=== PATIENT | male | born 1935 | race African-American/Black ===

== ENCOUNTER 2024-01-25 12:51 | Inpatient (IN) | payer MEDICARE, BC ==
[2024-01-26 12:04] LABS: Glucose,Whole Blood 177 mg/dL (70-110)
[2024-01-26] MEDS ORDERED: DEXTROSE 50% SYRINGE 50 ML IVP PRN ×2 (12:40)
[2024-01-26] MEDS: PIPERACILLIN-TAZOBACTAM 3.375 GM in SODIUM CHLORIDE 0.9% 100 ML IVPB SCH (16:53)
[2024-01-26] MEDS: carvediloL 12.5 MG TAB PO SCH (16:54)
[2024-01-26 17:06] LABS: Glucose,Whole Blood 174 mg/dL (70-110)
[2024-01-26] MEDS: INSULIN ASPART (NovoLOG) 100 UNIT/ML VIAL SQ SCH (17:09)
--- NOTE | 2024-01-26 17:44 | P.GSCN ---
History of Present Illness Consult date: 01/26/24 Reason for Consult: Recurrent right-sided pleural effusion, status post right thoracentesis Requesting physician: Bean E Sheet History of present illness: This is an 88-year-old gentleman who follows on an outpatient basis with Dr. Ayala for his primary care service, he also follows with Dr. Marlen Cuba for his pulmonary care management. He has a past medical history significant for hypertension, hyperlipidemia, COPD wears 2 L of oxygen at home, diabetes mellitus type 2, coronary artery disease status post three-vessel coronary artery bypass grafting surgery related to 95, history of myocardial infarction, arthritis, learning disability, prostate disease, gout, and a remote history of nicotine dependence in which he quit 40 years ago. He presented to the emergency department at [facility] via EMS on Tuesday, January 23, 2024 with complaints of shortness of breath, numbness to his bilateral lower extremities constipation and cold sweats. According to the patient's family members present at his bedside he recently had a right pleural effusion and underwent a right sided thoracentesis, or possible chest tube placement on January 01 or January 06, 2024. One of the patient's grandson states the cytology was positive for lung cancer. According to the patient's chart from [facility] the cytology was positive for metastatic carcinoma, differential including neuroendocrine carcinoma versus adenocarcinoma with neuroendocrine features. On 01/23/24 a Chest X-ray was completed which showed multifocal airspace disease due to right upper and lower lung lozano could represent pneumonia. A chest CT scan was was completed demonstrated a mass in the right upper lobe measured 10 x 4 cm, adjacent opacity with suspicion for infection and malignancy, involving a right lower lobe bronchus opacity left upper lobe, large right pleural effusion, no evidence of an acute upper lobe PE, no evidence of pneumothorax. The patient is receiving Zosyn for antibiotic therapy. The patient's laboratory results from [facility] show a WBC count of 13.7, hemoglobin 11.7, platelets 211, creatinine 1.04, and a lactic acid of 3.6. Currently the patient is on 2 L nasal cannula with oxygen saturations 92%. Subsequently, due to the patient's findings of right pleural effusion the patient was transferred to [facility] for further evaluation and treatment recommendations by cardiothoracic surgery. Review of Systems A review of systems was completed and was negative except as mentioned in the HPI. Past Medical History Past Medical History: Coronary Artery Disease (CAD) (History of three-vessel coronary artery bypass grafting surgery in 1994), Cancer, COPD (Uses 2 L oxygen at home), Diabetes Mellitus, Hyperlipidemia, Hypertension, Myocardial Infarction ([place]), Osteoarthritis (OA), Prostate Disorder Additional Past Medical History / Comment(s): lung cancer, gout Last Myocardial Infarction Date:: 1999 History of Any Multi-Drug Resistant Organisms: None Reported Past Surgical History: Coronary Bypass/CABG, Hernia Repair Additional Past Surgical History / Comment(s): triple bypass 1999, chest tube 01/06/2024, gallbladder surgery Past Anesthesia/Blood Transfusion Reactions: No Reported Reaction Past Psychological History: No Psychological Hx Reported Smoking Status: Former smoker Past Alcohol Use History: None Reported Past Drug Use History: None Reported - Past Family History Mother Family Medical History: Diabetes Mellitus Father Family Medical History: Myocardial Infarction ([place]) Medications and Allergies Home Medications Medication Instructions Recorded Confirmed Type Albuterol Sulfate [Albuterol 2 puff INHALATION RT-Q6H PRN 01/26/24 01/26/24 History Sulfate Hfa] Albuterol Sulfate [Ventolin HFA] 2 puff INHALATION RT-QID PRN 01/26/24 01/26/24 History Fluticasone Propion/Salmeterol 2 puff INHALATION RT-BID 01/26/24 01/26/24 History [Advair Hfa 230-21 Mcg Inhaler] Furosemide [Lasix] 20 mg PO MOWEFR 01/26/24 01/26/24 History Glimepiride [Amaryl] 4 mg PO AC-BRKFST 01/26/24 01/26/24 History Simvastatin [Zocor] 10 mg PO HS 01/26/24 01/26/24 History amLODIPine [Norvasc] 10 mg PO DAILY 01/26/24 01/26/24 History carvediloL [Coreg] 12.5 mg PO BID-W/MEALS 01/26/24 01/26/24 History metFORMIN HCL [Glucophage] 500 mg PO BID-W/MEALS 01/26/24 01/26/24 History predniSONE 5 mg PO DAILY 01/26/24 01/26/24 History Allergies Allergy/AdvReac Type Severity Reaction Status Date / Time No Known Allergies Allergy Unverified 01/26/24 13:03 Surgical - Exam Vital Signs Temp Pulse Resp BP Pulse Ox 98.0 F 83 22 122/51 92 L 01/26/24 10:36 01/26/24 10:36 01/26/24 10:36 01/26/24 10:36 01/26/24 10:36 - General This is an 88-year-old gentleman laying in bed on the fifth floor medical oncology unit, complaining of some pain to his right chest underneath his baljit ulder blade with taking deep breath, cooperative and is in no acute apparent distress. well developed, well nourished, no distress, chronically ill - Eyes PERRL, normal ocular movement, no pale, no icteric - ENT normal pinna, normal nares, normal mucosa, decreased hearing, dentures - Neck No lymphadenopathy. no masses, no bruits, trachea midline, no venous distension - Respiratory Lung sounds with scattered expiratory wheezes throughout, diminished to his bilateral bases right greater than left. No rhonchi or crackles. Respirations are symmetrical and nonlabored. Oxygen saturation is 92% on 2 L nasal cannula. - Cardiovascular Regular rhythm and rate. S1 and S2 present, negative for S3, gallop or murmur. No edema - Abdomen Abdomen is soft, nontender and slightly distended. No guarding or rigidity. No organomegaly appreciated. - Genitourinary Deferred - Rectum Deferred - Integumentary Skin is warm and dry. No clubbing or cyanosis is present. no rash, no growths, no abnormal pigmentation - Neurologic No focal deficits. - Psychiatric oriented to time, oriented to person, oriented to place, speech is normal, memory intact Results - Labs Abnormal Lab Results - Last 24 Hours (Table) 01/26/24 Range/Units 12:03 POC Glucose (mg/dL) 177 H (70-110) mg/dL Assessment and Plan Assessment: Recurrent right pleural effusion, noted from his chart from [facility] Recent diagnosis of lung cancer per pleural fluid cytology noted in his chart from [facility] Hypertension Hyperlipidemia Diabetes mellitus type 2 COPD with home oxygen use 2 L nasal cannula History of myocardial infarction in 1994 Coronary artery disease with history of three-vessel coronary artery bypass grafting surgery in 1994 Remote history of nicotine dependence quit smoking 40 years ago Plan: The patient was seen and examined at his bedside on the fourth floor medical oncology unit. His chart and diagnostics were reviewed from his chart from [facility]. His case was discussed with Dr. Jesus Lo from cardiothoracic surgery. We will obtain a stat chest x-ray to evaluate the right pleural effusion. Continue to monitor daily chest x-rays. We will order an incentive spirometry and encourage use 10 times every hour while awake. The patient is known to Dr. Cuba, we will consult Dr. Cuba from pulmonary [facility]. Medical management and other comorbidities per primary care service. More recommendations to follow based on patient's clinical course and as his chest x-ray results have been obtained. Thank you for this consult and we look forward to working with you in the care of this patient. I have personally seen and examined the patient, performed the documentation and the assessment and plan as written. Number of minutes spent on the visit: 30. Gary Cardenas, RYAN-C
--- NOTE | 2024-01-26 18:24 | XR ---
EXAMINATION TYPE: XR chest 1V portable DATE OF EXAM: 01/26/2024 COMPARISON: CT chest 01/23/2024 INDICATION: Right pleural effusion TECHNIQUE: Single frontal view of the chest is obtained. FINDINGS: The heart size is normal. The pulmonary vasculature is normal. Consolidation is in the right upper lobe. Scattered infiltrates in the right lower lobe. Small right pleural effusion is present. No pneumothorax is evident. Sternotomy wires are in the midline IMPRESSION: 1. Small right pleural effusion. 2. Mass versus consolidation right upper lobe. Follow-up to clearing. Neoplasm should be considered
[2024-01-26] MEDS: BUDESONIDE 0.5 MG/2 ML NEBU INHALATION SCH (18:55)
[2024-01-26] MEDS: IPRATROPIUM-ALBUTEROL 3 ML NEB INHALATION PRN (18:55)
[2024-01-26 19:27] LABS: Glucose,Whole Blood 147 mg/dL (70-110)
[2024-01-26] MEDS: ALPRAZolam 0.5 MG TAB PO PRN (19:38)
[2024-01-26] MEDS: FAMOTIDINE 20 MG TAB PO SCH (21:10)
[2024-01-26] MEDS: ATORVASTATIN 40 MG TAB PO SCH (21:10)
[2024-01-26] MEDS: HEPARIN SODIUM,PORCINE 5,000 UNIT/ML 1 ML VIAL SQ SCH (21:12)
[2024-01-26] MEDS: bisacodyL 10 MG SUPP RECTAL STA (22:05)
[2024-01-27] MEDS: HYDROcodone/APAP 5-325MG 1 EACH TAB PO PRN (04:25)
[2024-01-27] MEDS: guaiFENesin-DM 100-10MG/5ML 10 ML CUP PO PRN (04:54)
--- NOTE | 2024-01-27 05:04 | P.CNPUL ---
History of Present Illness Consult date: 01/27/24 Requesting physician: Edi Cardenas Reason for consult: pleural effusion Chief complaint: transfer from [facility] History of present illness: Patient is an 88-year-old -Maldivian male with past medical history significant for former tobacco dependence, severe COPD, chronic oxygen dependence, occupational lung disease, recurrent pleural effusion status post thoracentesis. Patient reportedly recently treated for pneumonia, had a right- sided thoracentesis done at [facility], earlier in December,. Cytology reportedly positive for carcinoma, differential including neuroendocrine versus adenocarcinoma with neuroendocrine features. Has followed up in the pulmonary office with Dr. Vivar on January 10. No plans for bronchoscopy and transbronchial biopsy, as the patient's pulmonary status is marginal at best. He has a oncology appointment scheduled on 02/07/2024. He returned to the outside facility on 01/23/24, with a chief complaint of ongoing worsening shortness of breath. Also, right-sided chest pain and night sweats. A chest CT scan was was completed demonstrated a mass in the right upper lobe measured 10 x 4 cm, adjacent opacity with suspicion for infection and malignancy, recurrent large right pleural effusion, no evidence of pneumothorax. Patient was transferred to our facility yesterday for possible Pleurx catheter placement. Cardiothoracic team has already evaluated the patient. Patient also has medical history significant for hypertension, hyperlipidemia, coronary artery disease with previous CABG, type 2 diabetes mellitus, among other things. Patient is currently on the medical floor. His grandson is at bedside. He is on 3 L/min nasal cannula. SpO2 is 96%. He states that he is still short of breath. Tachypneic. Pursed lip breathing. Also, complaining of some right sided thoracic level back pain. Separate concern is his constipation, although he did have a small bowel movement last night. No nausea or vomiting. No abdominal pain. CBC from outside facility: WBC count 13.7, hemoglobin 11.7, hematocrit 35.5, platelets 211. BMP from outside facility: Sodium 136, potassium 4.9, chloride 97, serum bicarb 30, BUN 23, creatinine 1.04, glucose 172. LFTs unremarkable. Covered empirically on Zosyn. Has been afebrile. Review of Systems Constitutional: Reports fatigue, Reports poor appetite, Reports weight loss, Denies chills, Denies fever Ears, nose, mouth and throat: Denies headache, Denies nasal discharge, Denies post-nasal drip, Denies sinus pressure, Denies sore throat Cardiovascular: Reports dyspnea on exertion, Denies leg edema, Denies lightheadedness, Denies orthopnea, Denies paroxysmal nocturnal dyspnea, Denies syncope Respiratory: Reports dyspnea, Reports home oxygen, Reports pain on inspiration, Reports wheezing, Denies cough with sputum, Denies hemoptysis Gastrointestinal: Reports constipation, Denies abdominal pain, Denies diarrhea, Denies nausea, Denies vomiting Genitourinary: Denies dysuria, Denies hematuria, Denies urinary frequency Musculoskeletal: Denies arm numbness/tingling, Denies leg numbness/tingling, Denies limitation of motion Integumentary: Denies rash Neurological: Denies balance difficulties, Denies change in mentation, Denies gait dysfunction, Denies headaches, Denies memory loss, Denies seizures, Denies syncope, Denies tremors, Denies visual changes Psychiatric: Denies anxiety, Denies depression Past Medical History Past Medical History: Coronary Artery Disease (CAD) (History of three-vessel coronary artery bypass grafting surgery in 1994), Cancer, COPD (Uses 2 L oxygen at home), Diabetes Mellitus, Hyperlipidemia, Hypertension, Myocardial Infarction ([place]), Osteoarthritis (OA), Prostate Disorder Additional Past Medical History / Comment(s): lung cancer, gout Last Myocardial Infarction Date:: 1999 History of Any Multi-Drug Resistant Organisms: None Reported Past Surgical History: Coronary Bypass/CABG, Hernia Repair Additional Past Surgical History / Comment(s): triple bypass 1999, chest tube 01/06/2024, gallbladder surgery Past Anesthesia/Blood Transfusion Reactions: No Reported Reaction Past Psychological History: No Psychological Hx Reported Smoking Status: Former smoker Past Alcohol Use History: None Reported Past Drug Use History: None Reported - Past Family History Mother Family Medical History: Diabetes Mellitus Father Family Medical History: Myocardial Infarction ([place]) Medications and Allergies Home Medications Medication Instructions Recorded Confirmed Type Albuterol Sulfate [Albuterol 2 puff INHALATION RT-Q6H PRN 01/26/24 01/26/24 History Sulfate Hfa] Albuterol Sulfate [Ventolin HFA] 2 puff INHALATION RT-QID PRN 01/26/24 01/26/24 History Fluticasone Propion/Salmeterol 2 puff INHALATION RT-BID 01/26/24 01/26/24 History [Advair Hfa 230-21 Mcg Inhaler] Furosemide [Lasix] 20 mg PO MOWEFR 01/26/24 01/26/24 History Glimepiride [Amaryl] 4 mg PO AC-BRKFST 01/26/24 01/26/24 History Simvastatin [Zocor] 10 mg PO HS 01/26/24 01/26/24 History amLODIPine [Norvasc] 10 mg PO DAILY 01/26/24 01/26/24 History carvediloL [Coreg] 12.5 mg PO BID-W/MEALS 01/26/24 01/26/24 History metFORMIN HCL [Glucophage] 500 mg PO BID-W/MEALS 01/26/24 01/26/24 History predniSONE 5 mg PO DAILY 01/26/24 01/26/24 History Allergies Allergy/AdvReac Type Severity Reaction Status Date / Time No Known Allergies Allergy Unverified 01/26/24 13:03 Physical Exam Vitals: Vital Signs Temp Pulse Pulse Resp BP BP Pulse Ox 01/27/24 01:04 96 01/27/24 01:01 26 H 01/27/24 00:45 98.0 F 87 40 H 150/88 94 L 01/26/24 20:00 98.0 F 82 32 H 138/69 96 01/26/24 19:06 76 01/26/24 18:50 72 01/26/24 12:54 97.9 F 84 23 127/80 92 L 01/26/24 10:36 98.0 F 83 22 122/51 92 L Intake and Output 01/26/24 01/26/24 01/27/24 14:59 22:59 06:59 Intake Total 0 Output Total 125 400 Balance -125 0 -400 Intake: Oral 0 Output: Urine 125 400 Straight 400 Other: Voiding Method Bedpan Urinal # Voids 1 # Bowel Movements 1 Weight 74.4 kg GENERAL EXAM: Alert, 88-year-old -Maldivian male, lying in bed, tachypneic and pursed lip breathing. On HEAD: Normocephalic and atraumatic EYES: Normal reaction of pupils, equal size. NOSE: Clear with pink turbinates. THROAT: No erythema or exudates. NECK: No masses, no JVD. CHEST: No chest wall deformity. LUNGS: Equal air entry with diminished right basilar lung sounds. Scattered expiratory wheezing throughout. 3 L/min nasal cannula. In some mild respir atory distress, pursed lip breathing, tachypneic breathing in the 20s. CVS: S1 and S2 normal with no audible murmur, regular rhythm. No extra heart sounds ABDOMEN: No hepatosplenomegaly, active bowel sounds, no guarding or rigidity. SPINE: No scoliosis or deformity SKIN: No rashes CENTRAL NERVOUS SYSTEM: No focal deficits, tone is normal in all 4 extremities. EXTREMITIES: There is no peripheral edema, clubbing, or cyanosis. Peripheral pulses are intact. Results - Laboratory Findings Abnormal lab findings: Abnormal Labs 01/26/24 01/26/24 01/26/24 12:03 17:05 19:26 POC Glucose (mg/dL) 177 H 174 H 147 H - Diagnostic Findings Chest x-ray: image reviewed Assessment and Plan Assessment: Recurrent right-sided pleural effusion, reportedly malignant, per fluid cytology derived from [facility]. Cytology reportedly positive for carcinoma, differential including neuroendocrine versus adenocarcinoma with neuroendocrine features. Right upper lobe mass, A chest CT scan was was completed at outside facility demonstrated a mass in the right upper lobe measured 10 x 4 cm, adjacent opacity with suspicion for infection and malignancy, recurrent large right pleural effusion, no evidence of pneumothorax. Previously, not considered for br onchoscopy and transbronchial biopsy due to patient's poor baseline pulmonary status. Acute COPD exacerbation Acute on chronic hypoxemic respiratory failure, secondary to above Severe chronic obstructive pulmonary disease Chronic oxygen dependence, with 2 L home O2 use History of occupational lung disease History of hypertension History of hyperlipidemia Diabetes mellitus type 2 Coronary artery disease with history of CABG Former tobacco dependence, quitting over 40 years ago Plan: Patient found to have a recurrent malignant pleural effusion at outside facility, transferred for possible Pleurx catheter insertion. This is likely a reasonable intervention, as the fluid has reaccumulated rather quickly. I will discuss the case with Dr. Cuba. Cardiothoracic service has already been asked to see this patient. Continue supplemental oxygen to maintain oxygen saturation of 92% or greater Start patient on combination of DuoNebs, Symbicort inhaler, and IV Solu-Medrol Patient continues on empiric Zosyn. Scheduled for initial outpatient appointment with oncology later this month Will need outpatient PET scan Further recommendations are forthcoming. I have personally seen and examined the patient, performed the documentation and the assessment and plan as written. Number of minutes spent on the visit:20 Time with Patient: Greater than 30
--- NOTE | 2024-01-27 06:06 | P.HPIM ---
History of Present Illness This is a pleasant 88 years old -[place] male with past medical history of multiple medical problems including lung cancer. Other medical problems include COPD, Diabetes Mellitus, Hypertension, Myocardial Infarction ([place]), Osteoarthritis (OA), Prostate Disorder Patient was admitted initially to the ER [facility] for shortness of breath. Patient was found to have pneumonia and acute COPD exacerbation. He was treated on broad-spectrum antibiotics and IV Solu-Medrol. Also he is on 2 to 3 L oxygen via nasal cannula with acceptable oxygen saturation. Patient was concern for recurrent malignant pleural effusion therefore he was transferred to this facility to be evaluated for possible Pleurx catheter placement. Patient currently lying in bed looks comfortable multiple family members present at bedside. He is mildly tachypneic but denies chest pain. No significant cough and No other symptoms. No weakness numbness dizziness. Patient also complains from constipation for about 1 week with mild abdominal distention but abdomen soft with no significant tenderness Currently denies smoking alcohol or illicit drugs At baseline 2 L currently he is on 3 L oxygen No labs in this facility is. Check blood work in the morning Review of Systems Review of systems CONSTITUTIONAL: No fever, no malaise, no fatigue. HEENT: No recent visual problems or hearing problems. Denied any sore throat. CARDIOVASCULAR: No orthopnea, PND, no palpitations, no syncope. PULMONARY: No chest wall tenderness, no hemoptysis. GASTROINTESTINAL: No diarrhea, no nausea, no vomiting, no abdominal pain. Normoactive bowel sounds. NEUROLOGICAL: No headaches, no weakness, no numbness. HEMATOLOGICAL: Denies any bleeding or petechiae. GENITOURINARY: Denies any burning micturition, frequency, or urgency. MUSCULOSKELETAL/RHEUMATOLOGICAL: Denies any joint pain, swelling, or any muscle pain. ENDOCRINE: Denies any polyuria or polydipsia. Past Medical History Past Medical History: Cancer, COPD, Diabetes Mellitus, Hypertension, Myocardial Infarction ([place]), Osteoarthritis ([place]), Prostate Disorder Additional Past Medical History / Comment(s): lung cancer, gout Last Myocardial Infarction Date:: 1999 History of Any Multi-Drug Resistant Organisms: None Reported Past Surgical History: Coronary Bypass/CABG, Hernia Repair Additional Past Surgical History / Comment(s): triple bypass 1999, chest tube 01/06/2024, gallbladder surgery Past Anesthesia/Blood Transfusion Reactions: No Reported Reaction Past Psychological History: No Psychological Hx Reported Smoking Status: Former smoker Past Alcohol Use History: None Reported Past Drug Use History: None Reported - Past Family History Mother Family Medical History: Diabetes Mellitus Father Family Medical History: Myocardial Infarction ([place]) Medications and Allergies Home Medications Medication Instructions Recorded Confirmed Type Albuterol Sulfate [Albuterol 2 puff INHALATION RT-Q6H PRN 01/26/24 01/26/24 History Sulfate Hfa] Albuterol Sulfate [Ventolin HFA] 2 puff INHALATION RT-QID PRN 01/26/24 01/26/24 History Fluticasone Propion/Salmeterol 2 puff INHALATION RT-BID 01/26/24 01/26/24 History [Advair Hfa 230-21 Mcg Inhaler] Furosemide [Lasix] 20 mg PO MOWEFR 01/26/24 01/26/24 History Glimepiride [Amaryl] 4 mg PO AC-BRKFST 01/26/24 01/26/24 History Simvastatin [Zocor] 10 mg PO HS 01/26/24 01/26/24 History amLODIPine [Norvasc] 10 mg PO DAILY 01/26/24 01/26/24 History carvediloL [Coreg] 12.5 mg PO BID-W/MEALS 01/26/24 01/26/24 History metFORMIN HCL [Glucophage] 500 mg PO BID-W/MEALS 01/26/24 01/26/24 History predniSONE 5 mg PO DAILY 01/26/24 01/26/24 History Allergies Allergy/AdvReac Type Severity Reaction Status Date / Time No Known Allergies Allergy Unverified 01/26/24 13:03 Physical Exam Vitals: Vital Signs Temp Pulse Resp BP Pulse Ox 01/26/24 10:36 98.0 F 83 22 122/51 92 L Intake and Output 01/25/24 01/26/24 01/26/24 22:59 06:59 14:59 Output Total 125 Balance -125 Output: Urine 125 Other: # Voids 1 GENERAL: The patient is alert and oriented x3, not in any acute distress. Well developed, well nourished. HEENT: Pupils are round and equally reacting to light. EOMI. No scleral icterus. No conjunctival pallor. Normocephalic, atraumatic. No pharyngeal erythema. No thyromegaly. CARDIOVASCULAR: S1 and S2 present. No murmurs, rubs, or gallops. -PULMONARY: Decreased breath sounds on lung bases, bilateral scattered wheezing , no crackles. ABDOMEN: Soft, nontender, nondistended, normoactive bowel sounds. No palpable organomegaly. MUSCULOSKELETAL: No joint swelling or deformity. EXTREMITIES: No cyanosis, clubbing, or pedal edema. NEUROLOGICAL: Gross neurological examination did not reveal any focal deficits. SKIN: No rashes. no petechiae. 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 Acute on chronic hypoxic respiratory failure secondary to above. Acute COPD exacerbation Possible postobstructive pneumonia. Constipation with mild abdominal distention Diabetes mellitus Hypertension Hyperlipidemia History of osteoarthritis BPH History of coronary artery disease s/p CABG Plan: Continue with breathing treatment Continue with Zosyn Continue with bronchodilator and IV Solu-Medrol Pulmonary team consult Cardiovascular surgery team consult Check KUB and give stool laxatives Labs and medication were reviewed.. Continue same treatment. Continue with symptomatic treatment. Resume home medication. Monitor lytes and vitals. DVT and GI prophylaxis. Further recommendations depends on the clinical course of the patient DVT prophylaxis: Subcutaneous heparin GI Prophylaxis: Pepcid PT/OT: Pending Prognosis is guarded
[2024-01-27] MEDS: methylPREDNISolone SOD SUCCI 125 MG/2 ML VIAL IV SCH (06:28)
[2024-01-27 07:17] LABS: Glucose,Whole Blood 148 mg/dL (70-110)
[2024-01-27 07:46] LABS: African American GFR (CKD) >90 (>60 ml/min/1.73 sqM); Anion Gap 3 mmol/L; Blood Urea Nitrogen 25 mg/dL (9-20); Calcium 9.1 mg/dL (8.4-10.2); Carbon Dioxide 35 mmol/L (22-30); Chloride 97 mmol/L (98-107); Glucose 159 mg/dL (74-99); Non-African American GFR(CKD) 78 (>60 ml/min/1.73 sqM); Potassium 4.5 mmol/L (3.5-5.1); Sodium 135 mmol/L (137-145)
[2024-01-27 07:53] LABS: NT-Pro-B-Type Natriuretic Pept 1330 pg/mL
[2024-01-27 08:05] LABS: Partial Thromboplastin Time 23.6 sec (22.0-30.0); Prothrombin Time 11.1 sec (10.0-12.5)
[2024-01-27] MEDS: IPRATROPIUM-ALBUTEROL 3 ML NEB INHALATION SCH (08:30)
[2024-01-27] MEDS: SYMBICORT 160-4.5 MCG INHALER INHALATION SCH (08:30)
[2024-01-27] MEDS ORDERED: predniSONE 20 MG TAB PO SCH (09:00)
[2024-01-27] MEDS: ASPIRIN 81 MG PO SCH (09:27)
[2024-01-27] MEDS: amLODIPine 10 MG TAB PO SCH (09:27)
[2024-01-27] MEDS: FUROSEMIDE 10 MG/ML 4 ML VIAL IV SCH (10:30)
--- NOTE | 2024-01-27 10:36 | XR ---
EXAMINATION TYPE: XR chest 2V DATE OF EXAM: 01/27/2024 COMPARISON: 01/26/2024 HISTORY: 88-year-old male right pleural effusion TECHNIQUE: Frontal and lateral views FINDINGS: Median sternotomy wires and post-CABG clips. Ongoing moderate right pleural effusion and large focal opacity filling the right upper lobe with convex inferior margin. Interstitial density throughout the left lung also persists. IMPRESSION: 1. Ongoing moderate right pleural effusion with adjacent atelectasis and or consolidation. 2. Ongoing extensive pleural-parenchymal opacity filling the right upper lobe. 3. Background COPD and mild interstitial changes which are similar.
[2024-01-27 10:37] LABS: Basophils # (A) 0.01 X 10*3/uL (0.00-0.10); Basophils % (A) 0.1 %; Eosinophils # (A) 0.01 X 10*3/uL (0.04-0.35); Eosinophils % (A) 0.1 %; HGB 12.7 g/dL (13.0-17.0); Lymphocytes # (A) 0.75 X 10*3/uL (0.90-5.00); Lymphocytes % (A) 9.2 %; MCHC 32.6 g/dL (32.0-37.0); MCV 92.2 FL (80.0-97.0); Monocytes # (A) 0.78 X 10*3/uL (0.20-1.00); Monocytes % (A) 9.6 %; NRBC Per 100 WBC 0.02 X 10*3/uL (0.00-0.01); Neutrophils # (A) 6.47 X 10*3/uL (1.80-7.70); Neutrophils % (A) 79.8 %; Platelet Count 201 X 10*3/uL (140-440); RBC 4.23 X 10*6/uL (4.40-5.60); RDW 13.8 % (11.5-14.5); WBC 8.12 X 10*3/uL (4.50-10.00)
--- NOTE | 2024-01-27 10:37 | US ---
EXAMINATION TYPE: US chest DATE OF EXAM: 01/27/2024 COMPARISON: Radiograph same day. CLINICAL INDICATION: Male, 88 years old with history of recurrent right sided pleural effusion; TECHNIQUE: Targeted ultrasound of the posterior lower right hemithorax Solvent Recoverer notes: Exam done portable EXAM MEASUREMENTS: Right Pleural Effusion pocket size: 6.5 cm Right skin surface to fluid distance: 2.6 cm Right side marked for possible thoracentesis outside the dept. Pulmonologists are able to review the images in the patient?s EMR. IMPRESSIONS: Moderate right pleural effusion with marking performed.
[2024-01-27 12:03] LABS: Glucose,Whole Blood 211 mg/dL (70-110)
--- NOTE | 2024-01-27 12:52 | P.PN ---
Subjective This is a pleasant 88 years old -Armenian male with past medical history of multiple medical problems including lung cancer. Other medical problems include COPD, Diabetes Mellitus, Hypertension, Myocardial Infarction (NE), Osteoarthritis (OA), Prostate Disorder Patient was admitted initially to the ER [facility] [place] for shortness of br eath. Patient was found to have pneumonia and acute COPD exacerbation. He was treated on broad-spectrum antibiotics and IV Solu-Medrol. Also he is on 2 to 3 L oxygen via nasal cannula with acceptable oxygen saturation. Patient was concern for recurrent malignant pleural effusion therefore he was transferred to this facility to be evaluated for possible Pleurx catheter placement. Patient currently lying in bed looks comfortable multiple family members present at bedside. He is mildly tachypneic but denies chest pain. No significant cough and No other symptoms. No weakness numbness dizziness. Patient also complains from constipation for about 1 week with mild abdominal distention but abdomen soft with no significant tenderness Currently denies smoking alcohol or illicit drugs At baseline 2 L currently he is on 3 L oxygen No labs in this facility is. Check blood work in the morning 01/26 Patient was still feeling short of breath and tachypnea this morning, chest x- ray showing pleural effusion, chest ultrasounds also reviewed right pocket pleural effusion 6.5 cm Pulmonary and cardiothoracic surgery on the case with the plan for Pleurx catheter placement for recurrent malignant pleural effusion Procalcitonin is negative, proBNP is low. Patient remains on Zosyn and IV Solu-Medrol Also patient states he had bowel movement yesterday Patient has some mild abdominal distention but no abdominal tenderness and abdomen looks soft. KUB ordered and result pending Objective - Vital Signs Vital signs: Vital Signs Temp 98.0 F 01/27/24 08:00 Pulse 63 01/27/24 08:00 Resp 16 01/27/24 08:00 BP 124/67 01/27/24 08:00 Pulse Ox 99 01/27/24 08:00 FiO2 Intake & Output 01/26/24 01/27/24 01/27/24 18:59 06:59 18:59 Intake Total 0 590 Output Total 125 400 100 Balance -125 190 -100 Weight 74.4 kg Intake: Oral 0 590 Output: Urine 125 400 100 Straight 400 Other: Voiding Method Bedpan Bedpan Urinal Urinal # Voids 1 1 # Bowel Movements 1 1 - Exam GENERAL: The patient is alert and oriented x3, not in any acute distress. Well developed, well nourished. HEENT: Pupils are round and equally reacting to light. EOMI. No scleral icterus. No conjunctival pallor. Normocephalic, atraumatic. No pharyngeal erythema. No thyromegaly. CARDIOVASCULAR: S1 and S2 present. No murmurs, rubs, or gallops. --PULMONARY: Decreased breath sounds on lung bases, bilateral scattered wheezing , no crackles. Tachypneic ABDOMEN: Soft, nontender, nondistended, normoactive bowel sounds. No palpable organomegaly. MUSCULOSKELETAL: No joint swelling or deformity. EXTREMITIES: No cyanosis, clubbing, or pedal edema. NEUROLOGICAL: Gross neurological examination did not reveal any focal deficits. SKIN: No rashes. no petechiae. - Labs CBC & Chem 7: 01/27/24 07:01 01/27/24 07:01 Labs: Abnormal Lab Results - Last 24 Hours (Table) 01/26/24 01/26/24 01/27/24 Range/Units 17:05 19:26 07:01 RBC 4.23 L (4.40-5.60) X 10*6/uL Hgb 12.7 L (13.0-17.0) g/dL Hct 39.0 L (39.6-50.0) % Immature Gran # 0.10 H (0.00-0.04) X 10*3/uL Lymphocytes # 0.75 L (0.90-5.00) X 10*3/uL Eosinophils # 0.01 L (0.04-0.35) X 10*3/uL NRBC/100 WBC Diff 0.02 H (0.00-0.01) X 10*3/uL Sodium (137-145) mmol/L Chloride (98-107) mmol/L Carbon Dioxide (22-30) mmol/L BUN (9-20) mg/dL Glucose (74-99) mg/dL POC Glucose (mg/dL) 174 H 147 H (70-110) mg/dL 01/27/24 01/27/24 01/27/24 Range/Units 07:01 07:15 12:02 RBC (4.40-5.60) X 10*6/uL Hgb (13.0-17.0) g/dL Hct (39.6-50.0) % Immature Gran # (0.00-0.04) X 10*3/uL Lymphocytes # (0.90-5.00) X 10*3/uL Eosinophils # (0.04-0.35) X 10*3/uL NRBC/100 WBC Diff (0.00-0.01) X 10*3/uL Sodium 135 L (137-145) mmol/L Chloride 97 L (98-107) mmol/L Carbon Dioxide 35 H (22-30) mmol/L BUN 25 H (9-20) mg/dL Glucose 159 H (74-99) mg/dL POC Glucose (mg/dL) 148 H 211 H (70-110) mg/dL Assessment and Plan Assessment: 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 Acute on chronic hypoxic respiratory failure secondary to above. Acute COPD exacerbation Possible postobstructive pneumonia. Constipation with mild abdominal distention Diabetes mellitus Hypertension Hyperlipidemia History of osteoarthritis BPH History of coronary artery disease s/p CABG Plan: Continue with breathing treatment Continue with Zosyn Continue with bronchodilator and IV Solu-Medrol Pulmonary team consult Cardiovascular surgery team consult Check KUB and give stool laxatives Labs and medication were reviewed.. Continue same treatment. Continue with symptomatic treatment. Resume home medication. Monitor lytes and vitals. DVT and GI prophylaxis. Further recommendations depends on the clinical course of the patient DVT prophylaxis: Subcutaneous heparin GI Prophylaxis: Pepcid PT/OT: Pending Prognosis is guarded
--- NOTE | 2024-01-27 13:09 | XR ---
EXAMINATION TYPE: XR KUB portable DATE OF EXAM: 01/26/2024 CLINICAL DATA: 88-year-old male constipation, PH[facility] COMPARISON: CT 01/24/2024 FINDINGS: Supine imaging limited by assessment of free air. Cholecystectomy clips. There is diffuse g assy small bowel and colon. No abnormal dilatation is seen. No significant stool burden. Vascular luisito cifications. IMPRESSION: Nonobstructive bowel gas pattern. No significant stool burden. Diffuse gassy colon and small bowel.
--- NOTE | 2024-01-27 13:55 | P.PN ---
Subjective Progress Note Date: 01/27/24 Principal diagnosis: Recurrent right-sided pleural effusion. Past medical history significant for hypertension, hyperlipidemia, COPD wears 2 L of oxygen at home, diabetes mellitus type 2, coronary artery disease status post three-vessel coronary artery bypass grafting surgery related to 95, history of myocardial infarction, arthritis, learning disability, prostate disease, gout, and a remote history of nicotine dependence in which he quit 40 years ago. The patient was seen and examined in follow-up today 01/27/2024 at his bedside on the fifth floor medical oncology unit. The patient grandson is present at his bedside. The patient is currently sleeping soundly, apparently was having some episodes of anxiousness and was given Xanax and Knox for some complaints of pain to his back. Oxygen saturation's 97% on 3 L and he has been achieving 750 mL on his incentive spirometry with encouragement. The patient has been scheduled for a right sided Pleurx catheter placement by Dr. Lo tomorrow 01/28/2024. Risks and benefits of the procedure have been discussed and knowing and understanding the risks the patient wishes to proceed with the procedure. Chest x-ray this morning has been reviewed. Objective - Vital Signs Vital signs: Vital Signs Temp 98.0 F 01/27/24 08:00 Pulse 63 01/27/24 08:00 Resp 16 01/27/24 08:00 BP 124/67 01/27/24 08:00 Pulse Ox 99 01/27/24 08:00 FiO2 Intake & Output 01/26/24 01/27/24 01/27/24 18:59 06:59 18:59 Intake Total 0 590 Output Total 125 400 100 Balance -125 190 -100 Weight 74.4 kg Intake: Oral 0 590 Output: Urine 125 400 100 Straight 400 Other: Voiding Method Bedpan Urinal # Voids 1 1 # Bowel Movements 1 1 - Exam CONSTITUTIONAL: Currently sleeping,Appears comfortable, cooperative, no acute distress RESPIRATORY: Lungs sounds diminished bilaterallyRight greater than left, scattered expiratory wheezing throughout. Respirations Symmetrical, nonlabored. Currently on 3 L nasal cannula with oxygen saturation 97%. Able to achieve 750 mL on incentive spirometry. Strong cough. CARDIOVASCULAR: S1, S2 present. Regular rate and rhythm. Palpable peripheral pulses bilaterally. No edema present. No calf pain or tenderness noted. GASTROINTESTINAL: Abdomen soft, nontender, slightly distended. Active bowel sounds present 4 quadrants. Tolerating diet. Positive bowel movement, last evening. GENITOURINARY: Continues to void. INTEGUMENTARY: Skin is warm and dry with no clubbing or cyanosis present. NEUROLOGIC: Cranial nerves II through XII intact. MUSKULOSKELETAL: Able to move all extremities, strength equal bilaterally. PSYCHIATRIC: Alert and oriented to person place and time, appropriate affect, intact judgment and insight. - Allied health notes Allied health notes reviewed: nursing - Labs CBC & Chem 7: 01/27/24 07:01 01/27/24 07:01 Labs: Abnormal Lab Results - Last 24 Hours (Table) 01/26/24 01/26/24 01/27/24 Range/Units 17:05 19:26 07:01 RBC 4.23 L (4.40-5.60) X 10*6/uL Hgb 12.7 L (13.0-17.0) g/dL Hct 39.0 L (39.6-50.0) % Immature Gran # 0.10 H (0.00-0.04) X 10*3/uL Lymphocytes # 0.75 L (0.90-5.00) X 10*3/uL Eosinophils # 0.01 L (0.04-0.35) X 10*3/uL NRBC/100 WBC Diff 0.02 H (0.00-0.01) X 10*3/uL Sodium (137-145) mmol/L Chloride (98-107) mmol/L Carbon Dioxide (22-30) mmol/L BUN (9-20) mg/dL Glucose (74-99) mg/dL POC Glucose (mg/dL) 174 H 147 H (70-110) mg/dL 01/27/24 01/27/24 01/27/24 Range/Units 07:01 07:15 12:02 RBC (4.40-5.60) X 10*6/uL Hgb (13.0-17.0) g/dL Hct (39.6-50.0) % Immature Gran # (0.00-0.04) X 10*3/uL Lymphocytes # (0.90-5.00) X 10*3/uL Eosinophils # (0.04-0.35) X 10*3/uL NRBC/100 WBC Diff (0.00-0.01) X 10*3/uL Sodium 135 L (137-145) mmol/L Chloride 97 L (98-107) mmol/L Carbon Dioxide 35 H (22-30) mmol/L BUN 25 H (9-20) mg/dL Glucose 159 H (74-99) mg/dL POC Glucose (mg/dL) 148 H 211 H (70-110) mg/dL - Imaging and Cardiology Chest x-ray: report reviewed, image reviewed Assessment and Plan Assessment: Recurrent right pleural effusion, noted from his chart from [facility] Recent diagnosis of lung cancer per pleural fluid cytology noted in his chart from [facility] Hypertension Hyperlipidemia Diabetes mellitus type 2 COPD with home oxygen use 2 L nasal cannula History of myocardial infarction in 1994 Coronary artery disease with history of three-vessel coronary artery bypass grafting surgery in 1994 Remote history of nicotine dependence quit smoking 40 years ago Plan: The patient is scheduled for right Pleurx catheter placement tomorrow 01/28/2024 to be performed by Dr. Jesus Lo. Nothing by mouth after midnight. Encourage use of incentive spirometry 10 times every hour while awake. Oxygen and bronchodilator management per pulmonary/critical care medicine. Medical management and other comorbidities per primary care service and other consultants. More recommendations follow based on patient's clinical course. Time with Patient: Less than 30
[2024-01-27 16:57] LABS: Glucose,Whole Blood 138 mg/dL (70-110)
--- NOTE | 2024-01-27 18:38 | P.CONS ---
History of Present Illness - Reason for Consult Consult date: 01/27/24 lung cancer Requesting physician: Jerson Kaplan - Chief Complaint SOB - History of Present Illness Patient is an 88-year-old male who initially presented to [facility] for progressing shortness of breath. Patient was also admitted there last month after being treated for pneumonia and underwent right thoracentesis on 01/06/2024 with 1 L removed. Cytology was positive for metastatic carcinoma, differential including neuroendocrine carcinoma versus adenocarcinoma with neuroendocrine features. He had scheduled follow-up with Dr. Nanette Guerrero on 02/07/2024. Chest x-ray at that time showed interval right thoracentesis with trace residual pleural effusion remaining. Consolidation in the right upper lobe. CT chest with contrast was subsequently obtained showing mass in the right upper lobe measuring 10 x 4 cm. With suspected multifocal infection in the right lung on the background of right upper lobe mass and large pleural effusion. Patient was started on Zosyn. CT abdomen pelvis was also obtained which showed metastatic disease to the liver. He was then transferred to [facility] for evaluation by cardiothoracic surgery for right Pleurx catheter. At today's visit patient was having labored breathing and is complaining of shortness of breath and is frustrated that he is unable to help care for himself and having depend on family. On admission chest x-ray showed ongoing moderate right pleural effusion with adjacent atelectasis and/or consolidation. Extensive pleural parenchymal opacity filling the right upper lobe. Chest ultrasound showed moderate right pleural effusion, pocket size 6.4 cm. Patient is scheduled tomorrow for right Pleurx placement Review of Systems 10 point ROS is negative except as stated in the HPI Past Medical History Past Medical History: Cancer, COPD, Diabetes Mellitus, Hypertension, Myocardial Infarction (DC), Osteoarthritis (OA), Prostate Disorder Additional Past Medical History / Comment(s): lung cancer, gout Last Myocardial Infarction Date:: 1999 History of Any Multi-Drug Resistant Organisms: None Reported Past Surgical History: Coronary Bypass/CABG, Hernia Repair Additional Past Surgical History / Comment(s): triple bypass 1999, chest tube 01/06/2024, gallbladder surgery Past Anesthesia/Blood Transfusion Reactions: No Reported Reaction Past Psychological History: No Psychological Hx Reported Smoking Status: Former smoker Past Alcohol Use History: None Reported Past Drug Use History: None Reported - Past Family History Mother Family Medical History: Diabetes Mellitus Father Family Medical History: Myocardial Infarction (DC) Medications and Allergies Home Medications Medication Instructions Recorded Confirmed Type Albuterol Sulfate [Albuterol 2 puff INHALATION RT-Q6H PRN 01/26/24 01/26/24 History Sulfate Hfa] Albuterol Sulfate [Ventolin HFA] 2 puff INHALATION RT-QID PRN 01/26/24 01/26/24 History Fluticasone Propion/Salmeterol 2 puff INHALATION RT-BID 01/26/24 01/26/24 History [Advair Hfa 230-21 Mcg Inhaler] Furosemide [Lasix] 20 mg PO MOWEFR 01/26/24 01/26/24 History Glimepiride [Amaryl] 4 mg PO AC-BRKFST 01/26/24 01/26/24 History Simvastatin [Zocor] 10 mg PO HS 01/26/24 01/26/24 History amLODIPine [Norvasc] 10 mg PO DAILY 01/26/24 01/26/24 History carvediloL [Coreg] 12.5 mg PO BID-W/MEALS 01/26/24 01/26/24 History metFORMIN HCL [Glucophage] 500 mg PO BID-W/MEALS 01/26/24 01/26/24 History predniSONE 5 mg PO DAILY 01/26/24 01/26/24 History Allergies Allergy/AdvReac Type Severity Reaction Status Date / Time No Known Allergies Allergy Unverified 01/26/24 13:03 Physical Exam Vitals: Vital Signs Temp Pulse Pulse Resp BP Pulse Ox 01/27/24 08:00 98.0 F 63 16 124/67 99 01/27/24 01:04 96 01/27/24 01:01 26 H 01/27/24 00:45 98.0 F 87 40 H 150/88 94 L 01/26/24 20:00 98.0 F 82 32 H 138/69 96 01/26/24 19:06 76 01/26/24 18:50 72 01/26/24 12:54 97.9 F 84 23 127/80 92 L Intake and Output 01/26/24 01/27/24 01/27/24 22:59 06:59 14:59 Intake Total 0 590 Output Total 400 100 Balance 0 190 -100 Intake: Oral 0 590 Output: Urine 400 100 Straight 400 Other: Voiding Method Bedpan Urinal # Voids 1 # Bowel Movements 1 1 - Constitutional General appearance: average body habitus, mild distress - EENT Eyes: anicteric sclerae, EOMI ENT: hearing grossly normal - Respiratory Respiratory: right: diminished - Cardiovascular Rhythm: regular - Gastrointestinal General gastrointestinal: soft, no tenderness - Integumentary Integumentary: no cyanotic - Neurologic Neurologic: CNII-XII intact - Psychiatric Psychiatric: A&O x's 3 Results CBC & Chem 7: 01/27/24 07:01 01/27/24 07:01 Labs: Abnormal Lab Results - Last 24 Hours (Table) 01/26/24 01/26/24 01/27/24 Range/Units 17:05 19:26 07:01 RBC 4.23 L (4.40-5.60) X 10*6/uL Hgb 12.7 L (13.0-17.0) g/dL Hct 39.0 L (39.6-50.0) % Immature Gran # 0.10 H (0.00-0.04) X 10*3/uL Lymphocytes # 0.75 L (0.90-5.00) X 10*3/uL Eosinophils # 0.01 L (0.04-0.35) X 10*3/uL NRBC/100 WBC Diff 0.02 H (0.00-0.01) X 10*3/uL Sodium (137-145) mmol/L Chloride (98-107) mmol/L Carbon Dioxide (22-30) mmol/L BUN (9-20) mg/dL Glucose (74-99) mg/dL POC Glucose (mg/dL) 174 H 147 H (70-110) mg/dL 01/27/24 01/27/24 01/27/24 Range/Units 07:01 07:15 12:02 RBC (4.40-5.60) X 10*6/uL Hgb (13.0-17.0) g/dL Hct (39.6-50.0) % Immature Gran # (0.00-0.04) X 10*3/uL Lymphocytes # (0.90-5.00) X 10*3/uL Eosinophils # (0.04-0.35) X 10*3/uL NRBC/100 WBC Diff (0.00-0.01) X 10*3/uL Sodium 135 L (137-145) mmol/L Chloride 97 L (98-107) mmol/L Carbon Dioxide 35 H (22-30) mmol/L BUN 25 H (9-20) mg/dL Glucose 159 H (74-99) mg/dL POC Glucose (mg/dL) 148 H 211 H (70-110) mg/dL Chest x-ray: report reviewed CT scan - abdomen: report reviewed CT scan - chest: report reviewed CT scan - pelvis: report reviewed Assessment and Plan (1) Malignant pleural effusion Current Visit: Yes Status: Acute Priority: High Code(s): J91.0 - MALIGNANT PLEURAL EFFUSION SNOMED Code(s): 191291228 Plan: Malignant pleural effusion: Presented to [facility] for progressing shortness of breath. CT chest with contrast was obtained showing mass in the right upper lobe measuring 10 x 4 cm. With suspected multifocal infection in the right lung on the ba ckground of right upper lobe mass and large pleural effusion. He was then transferred to [facility] for evaluation by cardiothoracic surgery for right Pleurx catheter placement -Underwent right thoracentesis on 01/06/2024 with 1 L removed. Cytology was positive for metastatic carcinoma, differential including neuroendocrine carcinoma versus adenocarcinoma with neuroendocrine features. -CT abdomen pelvis was also obtained at [facility] which showed metastatic disease in the liver -Patient is scheduled tomorrow for right Pleurx placement. Spoke with CTS, they will send pleural fluid for repeat cytology. Will request NGS and PDL-1 on pleural fluid, and also obtain liquid biopsy outpt to further confirm diagnosis. However, at this time based on findings, lung primary is most likely -MRI brain ordered to complete staging -Follow-up with Dr. Nanette Guerrero is scheduled on 02/07/2024 Discussed findings/results with patient and family. All questions and concerns were answered attests: I have seen and examined patient, performed H&P, developed impression and plan of care. Discussed with dictator. Agree with documentation, dictated as a scribe
[2024-01-27 20:12] LABS: Glucose,Whole Blood 145 mg/dL (70-110)
[2024-01-28 05:14] LABS: Glucose,Whole Blood 164 mg/dL (70-110)
[2024-01-28 07:38] LABS: Glucose,Whole Blood 158 mg/dL (70-110)
--- NOTE | 2024-01-28 10:42 | P.PN ---
Subjective Progress Note Date: 01/28/24 Patient is an 88-year-old -[place] male with past medical history significant for former tobacco dependence, severe COPD, chronic oxygen dependence, occupational lung disease, recurrent pleural effusion status post thoracentesis. Patient reportedly recently treated for pneumonia, had a right-sided thoracentesis done at [facility], earlier in December,. Cytology reportedly positive for carcinoma, differential including neuroendocrine versus adenocarcinoma with neuroendocrine features. Has followed up in the pulmonary office with Dr. Vivar on January 10. No plans for [facility] hoscopy and transbronchial biopsy, as the patient's pulmonary status is marginal at best. He has a oncology appointment scheduled on 02/07/2024. He returned to the outside facility on 01/23/24, with a chief complaint of ongoing worsening shortness of breath. Also, right-sided chest pain and night sweats. A chest CT scan was was completed demonstrated a mass in the right upper lobe measured 10 x 4 cm, adjacent opacity with suspicion for infection and malignancy, recurrent large right pleural effusion, no evidence of pneumothorax. Patient was transferred to our facility yesterday for possible Pleurx catheter placement. Cardiothoracic team has already evaluated the patient. Patient also has medical history significant for hypertension, hyperlipidemia, coronary artery disease with previous CABG, type 2 diabetes mellitus, among other things. Patient is currently on the medical floor. His grandson is at bedside. He is on 3 L/min nasal cannula. SpO2 is 96%. He states that he is still short of breath. Tachypneic. Pursed lip breathing. Also, complaining of some right sided thorac ic level back pain. Separate concern is his constipation, although he did have a small bowel movement last night. No nausea or vomiting. No abdominal pain. CBC from outside facility: WBC count 13.7, hemoglobin 11.7, hematocrit 35.5, platelets 211. BMP from outside facility: Sodium 136, potassium 4.9, chloride 97, serum bicarb 30, BUN 23, creatinine 1.04, glucose 172. LFTs unremarkable. Covered empirically on Zosyn. Has been afebrile. The patient is seen today January 28, 2024 in follow-up on the regular medical floor. He is currently resting comfortably in bed. Awake and alert in no acute distress. He is maintaining O2 saturations in the 90s on 3 L/min per nasal cannula. He is been afebrile. Hemodynamically stable. No worsening shortness of breath, cough or congestion. Plan is for a right-sided Pleurx catheter placement today. He remains on DuoNeb inhalations, Symbicort. Antibiotics in the form of Zosyn. To receive cefazolin for the procedure. He is on IV diuretics. Currently in a -650 mL balance. Objective - Vital Signs Vital signs: Vital Signs Temp 97.6 F 01/28/24 07:50 Pulse 72 01/28/24 08:58 Resp 18 01/28/24 07:50 BP 142/70 01/28/24 07:50 Pulse Ox 97 01/28/24 07:50 FiO2 Intake & Output 01/27/24 01/28/24 01/28/24 18:59 06:59 18:59 Output Total 100 550 Balance -100 -550 Output: Urine 100 550 Other: Voiding Method Bedpan Bedpan Urinal Urinal # Voids 1 # Bowel Movements 1 - Exam GENERAL EXAM: Alert, pleasant 88-year-old male patient, on 3 L nasal cannula, comfortable in no apparent distress. HEAD: Normocephalic. EYES: Normal reaction of pupils, equal size. NOSE: Clear with pink turbinates. THROAT: No erythema or exudates. NECK: No masses, no JVD. CHEST: No chest wall deformity. LUNGS: Equal air entry with diminished breath sounds in the right lung base, few scattered rhonchi. CVS: S1 and S2 normal with no audible murmur, regular rhythm. ABDOMEN: No hepatosplenomegaly, normal bowel sounds, no guarding or rigidity. SPINE: No scoliosis or deformity SKIN: No rashes CENTRAL NERVOUS SYSTEM: No focal deficits, tone is normal in all 4 extremities. EXTREMITIES: There is no peripheral edema. No clubbing, no cyanosis. Peripheral pulses are intact. - Labs CBC & Chem 7: 01/27/24 07:01 01/27/24 07:01 Labs: Abnormal Lab Results - Last 24 Hours (Table) 01/27/24 01/27/24 01/27/24 Range/Units 07:01 12:02 16:56 RBC 4.23 L (4.40-5.60) X 10*6/uL Hgb 12.7 L (13.0-17.0) g/dL Hct 39.0 L (39.6-50.0) % Immature Gran # 0.10 H (0.00-0.04) X 10*3/uL Lymphocytes # 0.75 L (0.90-5.00) X 10*3/uL Eosinophils # 0.01 L (0.04-0.35) X 10*3/uL NRBC/100 WBC Diff 0.02 H (0.00-0.01) X 10*3/uL POC Glucose (mg/dL) 211 H 138 H (70-110) mg/dL 01/27/24 01/28/24 01/28/24 Range/Units 20:11 05:13 07:26 RBC (4.40-5.60) X 10*6/uL Hgb (13.0-17.0) g/dL Hct (39.6-50.0) % Immature Gran # (0.00-0.04) X 10*3/uL Lymphocytes # (0.90-5.00) X 10*3/uL Eosinophils # (0.04-0.35) X 10*3/uL NRBC/100 WBC Diff (0.00-0.01) X 10*3/uL POC Glucose (mg/dL) 145 H 164 H 158 H (70-110) mg/dL Assessment and Plan Assessment: Recurrent right-sided pleural effusion, reportedly malignant, per fluid cytology derived from [facility]. Cytology reportedly positive for carcinoma, differential including neuroendocrine versus adenocarcinoma with neuroendocrine features. Plan is for right-sided Pleurx catheter placement today January 28, 2024 Right upper lobe mass, A chest CT scan was was completed at outside facility demonstrated a mass in the right upper lobe measured 10 x 4 cm, adjacent opacity with suspicion for infection and malignancy, recurrent large right pleural effu alphonso, no evidence of pneumothorax. Previously, not considered for bronchoscopy and transbronchial biopsy due to patient's poor baseline pulmonary status Acute COPD exacerbation Acute on chronic hypoxemic respiratory failure, secondary to above Severe chronic obstructive pulmonary disease Chronic oxygen dependence, with 2 L home O2 use History of occupational lung disease History of hypertension History of hyperlipidemia Diabetes mellitus type 2 Coronary artery disease with history of CABG Former tobacco dependence, quitting over 40 years ago Plan: The patient was seen and evaluated Medications reviewed Plan is for right-sided Pleurx catheter placement today Currently stable and on 3 L nasal cannula Continued on bronchodilators Encourage increased use of the incentive spirometer Increase his activity as tolerated We will continue to follow I have personally seen and examined the patient, performed the documentation and the assessment and plan as written. Number of minutes spent on the visit: 10.
[2024-01-28 12:36] LABS: Glucose,Whole Blood 194 mg/dL (70-110)
[2024-01-28] MEDS: LIDOCAINE 1% INJ 10MG/ML (20 ML MDV) SQ ONE (13:37)
[2024-01-28] MEDS: IV FLUID CONTINUATION 1,000 ML IV ONE (13:42)
[2024-01-28] MEDS: LACTATED RINGERS 1,000 ML BAG IV STA (13:47)
--- NOTE | 2024-01-28 15:21 | P.PN ---
Subjective Progress Note Date: 01/28/24 88 years old -British male with past medical history of multiple medical problems including lung cancer. Other medical problems include COPD, Diabetes Mellitus, Hypertension, Myocardial Infarction (MN), Osteoarthritis (OA), Prostate Disorder Patient was admitted initially to the ER [facility] for shortness of breath. Patient was found to have pneumonia and acute COPD exacerbation. He was treated on broad-spectrum antibiotics and IV Solu-Medrol. Also he is on 2 to 3 L oxygen via nasal cannula with acceptable oxygen saturation. Patient was concern for recurrent malignant pleural effusion therefore he was transferred to this facility to be evaluated for possible Pleurx catheter placement. Patient currently lying in bed looks comfortable multiple family members present at bedside. He is mildly tachypneic but denies chest pain. No significant cough and No other symptoms. No weakness numbness dizziness. Patient also complains from constipation for about 1 week with mild abdominal distention but abdomen soft with no significant tenderness Currently denies smoking alcohol or illicit drugs At baseline 2 L currently he is on 3 L oxygen No labs in this facility is. Check blood work in the morning Objective - Vital Signs Vital signs: Vital Signs Temp 97.2 F L 01/28/24 13:33 Pulse 78 01/28/24 13:33 Resp 18 01/28/24 13:33 BP 141/70 01/28/24 13:33 Pulse Ox 98 01/28/24 13:45 FiO2 Intake & Output 01/27/24 01/28/24 01/28/24 18:59 06:59 18:59 Output Total 100 550 Balance -100 -550 Output: Urine 100 550 Other: Voiding Method Bedpan Bedpan Urinal Urinal Urinal # Voids 1 # Bowel Movements 1 - Exam GENERAL: The patient is alert and oriented x3, not in any acute distress. Well developed, well nourished. HEENT: Pupils are round and equally reacting to light. EOMI. No scleral icterus. No conjunctival pallor. Normocephalic, atraumatic. No pharyngeal erythema. No thyromegaly. CARDIOVASCULAR: S1 and S2 present. No murmurs, rubs, or gallops. --PULMONARY: Decreased breath sounds on lung bases, bilateral scattered wheezing , no crackles. Tachypneic ABDOMEN: Soft, nontender, nondistended, normoactive bowel sounds. No palpable organomegaly. MUSCULOSKELETAL: No joint swelling or deformity. EXTREMITIES: No cyanosis, clubbing, or pedal edema. NEUROLOGICAL: Gross neurological examination did not reveal any focal deficits. SKIN: No rashes. no petechiae. 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 Acute on chronic hypoxic respiratory failure secondary to above. Acute COPD exacerbation Possible postobstructive pneumonia. Constipation with mild abdominal distention Diabetes mellitus Hypertension Hyperlipidemia History of osteoarthritis BPH History of coronary artery disease s/p CABG Plan: Continue with breathing treatment Continue with Zosyn Continue with bronchodilator and IV Solu-Medrol Pulmonary team consult Cardiovascular surgery team consult Check KUB and give stool laxatives Labs and medication were reviewed.. Continue same treatment. Continue with symptomatic treatment. Resume home medication. Monitor lytes and vitals. DVT and GI prophylaxis. Further recommendations depends on the clinical course of the patient DVT prophylaxis: Subcutaneous heparin GI Prophylaxis: Pepcid PT/OT: Pending Prognosis is guarded
[2024-01-28 17:18] LABS: Glucose,Whole Blood 194 mg/dL (70-110)
[2024-01-28 19:47] LABS: Glucose,Whole Blood 179 mg/dL (70-110)
[2024-01-29 07:06] LABS: Glucose,Whole Blood 200 mg/dL (70-110)
[2024-01-29] MEDS ORDERED: fentaNYL (PF) 50 MCG/ML 2 ML AMP ONE (08:02)
[2024-01-29] MEDS: IV FLUID CONTINUATION 1,000 ML IV ONE (08:02)
[2024-01-29] MEDS ORDERED: PROPOFOL 10 MG/ML 20 ML VIAL IV ONE (08:02)
[2024-01-29] MEDS: SODIUM CHLORIDE 0.9% 50 ML with ceFAZolin 2,000 MG IV ONE (08:10)
--- NOTE | 2024-01-29 08:46 | P.OP ---
Date of Procedure: 01/29/24 Preoperative Diagnosis: Recurrent right-sided malignant pleural effusion Postoperative Diagnosis: Same Procedure(s) Performed: Insertion of right Pleurx catheter under fluoroscopic guidance with drainage of pleural space Implants: Pleurx catheter Anesthesia: MAC Surgeon: Jesus Lo Estimated Blood Loss (ml): 3 Pathology: other (1.5 L pleural fluid for cytology) Condition: stable Disposition: PACU Indications for Procedure: 88-year-old male presents with dyspnea found to have large right pleural effusion. He had been tapped a month earlier for right-sided pleural effusion with positive cytology consistent with stage IV lung cancer. Chest x-ray and CT scan confirmed presence of large recurrent right pleural effusion. PleurX catheter was requested. Operative Findings: Drained 1.5 L of serous fluid. Completion x-ray demonstrated good reexpansion of the lung with minimal residual fluid. Description of Procedure: Patient was brought to the operating room placed supine on the table. The head was elevated 30 degrees. Fluid was percussed out on the right pleural space and the interspace marked. Right chest and right upper quadrant of the abdomen were sterilely prepped and draped. Marked interspace was anesthetized with 1% lidocaine. Fluid was localized with a skinny needle and the tract anesthetized with lidocaine. Pleural space was then punctured at the site with an 18-gauge needle and a guidewire threaded into the pleural space under fluoroscopic guidance. Counterincision was made in the right upper quadrant with lidocaine anesthesia and the puncture site was enlarged with an 11 blade. PleurX catheter was tunneled from the right upper quadrant site to the puncture site with the cough left under the skin at the upper quadrant site. Introducer and dilator were placed over the guidewire under fluoroscopic guidance. Catheter was threaded into the pleural space through the introducer sheath and it was then removed. Catheter was placed to suction and 1.5 L of fluid was drained. We ceased drainage when it became uncomfortable for the patient. Catheter was secured at the exit site with 2-0 silk suture ligature. Puncture site was closed with 4-0 Vicryl suture. Skin glue was applied at this site. PleurX catheter was capped and placed in a standard Pleurx dressing. Completion fluoroscopy demonstrated good expansion of the lung.
--- NOTE | 2024-01-29 09:13 | XR ---
EXAMINATION TYPE: XR chest 1V portable DATE OF EXAM: 01/29/2024 9:04 AM CLINICAL INDICATION: Male, 88 years old with history of Post op PleurX placement; COMPARISON: Chest radiographs from 01/27/2024 TECHNIQUE: XR chest 1V portable Frontal view of the chest. FINDINGS: Lungs/Pleura: There is no evidence of pleural effusion, focal consolidation, or pneumothorax. Pulmonary vascularity: Unremarkable. Heart/mediastinum: Cardiomediastinal silhouette is unremarkable. Musculoskeletal: No acute osseous pathology. Midline sternotomy wires are noted. IMPRESSION: 1. Right thoracotomy Pleurx catheter No evidence of pneumothorax. 2. Right upper lung airspace opacities.
[2024-01-29 09:35] LABS: Glucose,Whole Blood 192 mg/dL (70-110)
[2024-01-29 09:40] LABS: Basophils # (A) 0.03 X 10*3/uL (0.00-0.10); Basophils % (A) 0.3 %; Eosinophils # (A) 0 X 10*3/uL (0.04-0.35); Eosinophils % (A) 0 %; HCT 41.1 % (39.6-50.0); HGB 13.7 g/dL (13.0-17.0); Lymphocytes # (A) 0.53 X 10*3/uL (0.90-5.00); Lymphocytes % (A) 4.6 %; MCHC 33.3 g/dL (32.0-37.0); MCV 89.9 FL (80.0-97.0); Mean Platelet Volume 9.7 FL (9.5-12.2); Monocytes # (A) 0.65 X 10*3/uL (0.20-1.00); Monocytes % (A) 5.6 %; NRBC Per 100 WBC 0 X 10*3/uL (0.00-0.01); Neutrophils # (A) 10.19 X 10*3/uL (1.80-7.70); Neutrophils % (A) 87.9 %; Platelet Count 212 X 10*3/uL (140-440); RBC 4.57 X 10*6/uL (4.40-5.60); RDW 13.6 % (11.5-14.5); WBC 11.59 X 10*3/uL (4.50-10.00)
[2024-01-29 10:37] LABS: Blood Urea Nitrogen 36.3 mg/dL (9.0-27.0); Calcium 9.1 mg/dL (8.7-10.3); Carbon Dioxide 30.3 mmol/L (21.6-31.8); Chloride 93 mmol/L (96-109); Glucose 260 mg/dL (70-110); Potassium 4.4 mmol/L (3.5-5.5); Sodium 137 mmol/L (135-145)
--- NOTE | 2024-01-29 11:15 | P.PN ---
Subjective Progress Note Date: 01/29/24 Patient is an 88-year-old -[place] male with past medical history significant for former tobacco dependence, severe COPD, chronic oxygen dependence, occupational lung disease, recurrent pleural effusion status post thoracentesis. Patient reportedly recently treated for pneumonia, had a right-sided thoracentesis done at [facility], earlier in December,. Cytology reportedly positive for carcinoma, differential including neuroendocrine versus adenocarcinoma with neuroendocrine features. Has followed up in the pulmonary office with Dr. Vivar on January 10. No plans for [facility] hoscopy and transbronchial biopsy, as the patient's pulmonary status is marginal at best. He has a oncology appointment scheduled on 02/07/2024. He returned to the outside facility on 01/23/24, with a chief complaint of ongoing worsening shortness of breath. Also, right-sided chest pain and night sweats. A chest CT scan was was completed demonstrated a mass in the right upper lobe measured 10 x 4 cm, adjacent opacity with suspicion for infection and malignancy, recurrent large right pleural effusion, no evidence of pneumothorax. Patient was transferred to our facility yesterday for possible Pleurx catheter placement. Cardiothoracic team has already evaluated the patient. Patient also has medical history significant for hypertension, hyperlipidemia, coronary artery disease with previous CABG, type 2 diabetes mellitus, among other things. Patient is currently on the medical floor. His grandson is at bedside. He is on 3 L/min nasal cannula. SpO2 is 96%. He states that he is still short of breath. Tachypneic. Pursed lip breathing. Also, complaining of some right sided thorac ic level back pain. Separate concern is his constipation, although he did have a small bowel movement last night. No nausea or vomiting. No abdominal pain. CBC from outside facility: WBC count 13.7, hemoglobin 11.7, hematocrit 35.5, platelets 211. BMP from outside facility: Sodium 136, potassium 4.9, chloride 97, serum bicarb 30, BUN 23, creatinine 1.04, glucose 172. LFTs unremarkable. Covered empirically on Zosyn. Has been afebrile. The patient is seen today January 28, 2024 in follow-up on the regular medical floor. He is currently resting comfortably in bed. Awake and alert in no acute distress. He is maintaining O2 saturations in the 90s on 3 L/min per nasal cannula. He is been afebrile. Hemodynamically stable. No worsening shortness of breath, cough or congestion. Plan is for a right-sided Pleurx catheter placement today. He remains on DuoNeb inhalations, Symbicort. Antibiotics in the form of Zosyn. To receive cefazolin for the procedure. He is on IV diuretics. Currently in a -650 mL balance. The patient is seen today January 29, 2004 in follow-up on the regular medical floor. He is awake and alert in no acute distress. He was not able to obtain a Pleurx catheter to the right chest yesterday and the plan is for placement today. He denies any worsening shortness of breath, cough or congestion. He is continued on Symbicort, DuoNeb and elations, Solu-Medrol. Remains on antibiotics in the form of Zosyn. Remains on IV diuretics. Heparin for DVT p rophylaxis. He remains in a negative balance. White count 11.5. Hemoglobin 13.7. Platelets 212. Sodium 137. Potassium 4.4. Bicarb 30. BUN 36. Creatinine 1.0. Glucose 192. Objective - Vital Signs Vital signs: Vital Signs Temp 97.8 F 01/29/24 09:42 Pulse 69 01/29/24 09:42 Resp 20 01/29/24 09:42 BP 133/69 01/29/24 09:42 Pulse Ox 96 01/29/24 09:42 FiO2 Intake & Output 01/28/24 01/29/24 01/29/24 18:59 06:59 18:59 Intake Total 540 200 Output Total 800 100 3 Balance -260 -100 197 Intake: IV 200 Oral 540 Output: Urine 800 100 Estimated Blood Loss 3 Other: Voiding Method Urinal Urinal Diaper - Exam GENERAL EXAM: Alert, 88-year-old male patient, resting in bed, on 3 L nasal cannula, in no apparent distress. HEAD: Normocephalic. EYES: Normal reaction of pupils, equal size. NOSE: Clear with pink turbinates. THROAT: No erythema or exudates. NECK: No masses, no JVD. CHEST: No chest wall deformity. LUNGS: Equal air entry with diminished breath sounds in the right lung base, few scattered rhonchi. CVS: S1 and S2 normal with no audible murmur, regular rhythm. ABDOMEN: No hepatosplenomegaly, normal bowel sounds, no guarding or rigidity. SPINE: No scoliosis or deformity SKIN: No rashes CENTRAL NERVOUS SYSTEM: No focal deficits, tone is normal in all 4 extremities. EXTREMITIES: There is no peripheral edema. No clubbing, no cyanosis. Peripheral pulses are intact. - Labs CBC & Chem 7: 01/29/24 03:05 01/29/24 03:05 Labs: Abnormal Lab Results - Last 24 Hours (Table) 01/28/24 01/28/24 01/28/24 Range/Units 12:30 17:16 19:45 WBC (4.50-10.00) X 10*3/uL Immature Gran # (0.00-0.04) X 10*3/uL Neutrophils # (1.80-7.70) X 10*3/uL Lymphocytes # (0.90-5.00) X 10*3/uL Eosinophils # (0.04-0.35) X 10*3/uL Chloride (96-109) mmol/L Anion Gap (4.00-12.00) mmol/L BUN (9.0-27.0) mg/dL BUN/Creatinine Ratio (12.00-20.00) Ratio Glucose (70-110) mg/dL POC Glucose (mg/dL) 194 H 194 H 179 H (70-110) mg/dL 01/29/24 01/29/24 01/29/24 Range/Units 03:05 03:05 07:05 WBC 11.59 H (4.50-10.00) X 10*3/uL Immature Gran # 0.19 H (0.00-0.04) X 10*3/uL Neutrophils # 10.19 H (1.80-7.70) X 10*3/uL Lymphocytes # 0.53 L (0.90-5.00) X 10*3/uL Eosinophils # 0 L (0.04-0.35) X 10*3/uL Chloride 93 L (96-109) mmol/L Anion Gap 13.70 H (4.00-12.00) mmol/L BUN 36.3 H (9.0-27.0) mg/dL BUN/Creatinine Ratio 36.30 H (12.00-20.00) Ratio Glucose 260 H (70-110) mg/dL POC Glucose (mg/dL) 200 H (70-110) mg/dL 01/29/24 Range/Units 09:22 WBC (4.50-10.00) X 10*3/uL Immature Gran # (0.00-0.04) X 10*3/uL Neutrophils # (1.80-7.70) X 10*3/uL Lymphocytes # (0.90-5.00) X 10*3/uL Eosinophils # (0.04-0.35) X 10*3/uL Chloride (96-109) mmol/L Anion Gap (4.00-12.00) mmol/L BUN (9.0-27.0) mg/dL BUN/Creatinine Ratio (12.00-20.00) Ratio Glucose (70-110) mg/dL POC Glucose (mg/dL) 192 H (70-110) mg/dL Assessment and Plan Assessment: Recurrent right-sided pleural effusion, reportedly malignant, per fluid cytology derived from [facility]. Cytology reportedly positive for carcinoma, differential i ncluding neuroendocrine versus adenocarcinoma with neuroendocrine features. Plan is for right-sided Pleurx catheter placement today January 29, 2024 Right upper lobe mass, A chest CT scan was was completed at outside facility demonstrated a mass in the right upper lobe measured 10 x 4 cm, adjacent opacity with suspicion for infection and malignancy, recurrent large right pleural effusion, no evidence of pneumothorax. Previously, not considered for bronchoscopy and transbronchial biopsy due to patient's poor baseline pulmonary status Acute COPD exacerbation Acute on chronic hypoxemic respiratory failure, secondary to above Severe chronic obstructive pulmonary disease Chronic oxygen dependence, with 2 L home O2 use History of occupational lung disease History of hypertension History of hyperlipidemia Diabetes mellitus type 2 Coronary artery disease with history of CABG Former tobacco dependence, quitting over 40 years ago Plan: The patient was seen and evaluated Medications reviewed Remains stable and on 3 L nasal cannula Continued on bronchodilators Increase his activity as tolerated We will continue to follow I have personally seen and examined the patient, performed the documentation and the assessment and plan as written. Number of minutes spent on the visit: 10.
[2024-01-29 12:03] LABS: Glucose,Whole Blood 237 mg/dL (70-110)
--- NOTE | 2024-01-29 13:03 | MR ---
EXAMINATION TYPE: MR brain wo/w con DATE OF EXAM: 01/29/2024 12:52 PM CLINICAL INDICATION: Male, 88 years old with history of metastatic lung cancer, staging; PHH, metasta tic lung cancer, staging COMPARISON: None TECHNIQUE: Multi planar, multi sequence imaging was performed through the brain including: T1, T2, In version recovery, susceptibility weighted imaging and gradient echo imaging and Diffusion weighted im aging. The patient was then given intravenous contrast and multi planar, T1 fat-saturation images wer e obtained. IV Contrast: 7.5 cc Gadavist FINDINGS: The sal-white junctions, ventricular system, basal cisterns appear unremarkable. Diffusion-weighted imaging shows no evidence of restricted diffusion to suggest acute/subacute infarct. Intracranial ar terial flow voids are maintained. Midline structures show no abnormality. Scattered foci of high T2 s ignal intensity are seen within the periventricular white matter. The susceptibility weighted images do not reveal any evidence for micro-hemorrhage. After administration of gadolinium, no abnormal enha ncement is seen. The bone marrow signal is within normal limits. Paranasal sinuses and mastoid air cells: Moderate right maxillary sinus mucosal thickening Visualized orbits: Orbital contents are intact. IMPRESSION: 1. No evidence of intracranial mass, acute/subacute infarct, or abnormal enhancement. 2. Nonspecific white matter changes, likely related to small vessel ischemic disease. [facility], Workstation [id number], 01/29/2024 1:00 PM [facility], Workstation [id number], 01/29/2024 1:00 PM
--- NOTE | 2024-01-29 14:12 | P.PN ---
Subjective Progress Note Date: 01/29/24 88 years old -[place] male with past medical history of multiple medical problems including lung cancer. Other medical problems include COPD, Diabetes Mellitus, Hypertension, Myocardial Infarction ([place]), Osteoarthritis (OA), Prostate Disorder Patient was admitted initially to the ER [facility] for shortness of breath. Patient was found to have pneumonia and acute COPD exacerbation. He was treated on broad-spectrum antibiotics and IV Solu-Medrol. Also he is on 2 to 3 L oxygen via nasal cannula with acceptable oxygen saturation. Patient was concern for recurrent malignant pleural effusion therefore he was transferred to this facility to be evaluated for possible Pleurx catheter placement. Patient currently lying in bed looks comfortable multiple family members present at bedside. He is mildly tachypneic but denies chest pain. No significant cough and No other symptoms. No weakness numbness dizziness. Patient also complains from constipation for about 1 week with mild abdominal distention but abdomen soft with no significant tenderness Currently denies smoking alcohol or illicit drugs At baseline 2 L currently he is on 3 L oxygen No labs in this facility is. Check blood work in the morning 01/29/2024 Patient is seen and evaluated with nursing staff at bedside; ready to be transported to radiology He was not able to obtain a Pleurx catheter to the right chest yesterday and the plan is for placement today. He denies any worsening shortness of breath, cough or congestion. He is continued on Symbicort, DuoNeb and elations, Solu-Medrol. Remains on antibiotics in the form of Zosyn. Remains on IV diuretics. Heparin for DVT prophylaxis. He remains in a negative balance. White count 11.5. Hemoglobin 13.7. Platelets 212. Sodium 137. Potassium 4.4. Bicarb 30. BUN 36. Creatinine 1.0. Glucose 192. Objective - Vital Signs Vital signs: Vital Signs Temp 97 F L 01/29/24 08:42 Pulse 81 01/29/24 09:12 Resp 16 01/29/24 09:12 BP 130/67 01/29/24 09:12 Pulse Ox 100 01/29/24 09:12 FiO2 Intake & Output 01/28/24 01/29/24 01/29/24 18:59 06:59 18:59 Intake Total 540 200 Output Total 800 100 3 Balance -260 -100 197 Intake: IV 200 Oral 540 Output: Urine 800 100 Estimated Blood Loss 3 Other: Voiding Method Urinal Urinal Diaper - Exam GENERAL: The patient is alert and oriented x3, not in any acute distress. Well developed, well nourished. HEENT: Pupils are round and equally reacting to light. EOMI. No scleral icterus. No conjunctival pallor. Normocephalic, atraumatic. No pharyngeal erythema. No thyromegaly. CARDIOVASCULAR: S1 and S2 present. No murmurs, rubs, or gallops. --PULMONARY: Decreased breath sounds on lung bases, bilateral scattered wheezing , no crackles. Tachypneic ABDOMEN: Soft, nontender, nondistended, normoactive bowel sounds. No palpable organomegaly. MUSCULOSKELETAL: No joint swelling or deformity. EXTREMITIES: No cyanosis, clubbing, or pedal edema. NEUROLOGICAL: Gross neurological examination did not reveal any focal deficits. SKIN: No rashes. no petechiae. - Labs CBC & Chem 7: 01/29/24 03:05 01/29/24 03:05 Labs: Abnormal Lab Results - Last 24 Hours (Table) 01/28/24 01/28/24 01/28/24 Range/Units 12:30 17:16 19:45 WBC (4.50-10.00) X 10*3/uL Immature Gran # (0.00-0.04) X 10*3/uL Neutrophils # (1.80-7.70) X 10*3/uL Lymphocytes # (0.90-5.00) X 10*3/uL Eosinophils # (0.04-0.35) X 10*3/uL POC Glucose (mg/dL) 194 H 194 H 179 H (70-110) mg/dL 01/29/24 01/29/24 01/29/24 Range/Units 03:05 07:05 09:22 WBC 11.59 H (4.50-10.00) X 10*3/uL Immature Gran # 0.19 H (0.00-0.04) X 10*3/uL Neutrophils # 10.19 H (1.80-7.70) X 10*3/uL Lymphocytes # 0.53 L (0.90-5.00) X 10*3/uL Eosinophils # 0 L (0.04-0.35) X 10*3/uL POC Glucose (mg/dL) 200 H 192 H (70-110) mg/dL Assessment and Plan Assessment: 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 Acute on chronic hypoxic respiratory failure secondary to above. Acute COPD exacerbation Possible postobstructive pneumonia. Constipation with mild abdominal distention Diabetes mellitus Hypertension Hyperlipidemia History of osteoarthritis BPH History of coronary artery disease s/p CABG Plan: Continue with breathing treatment Continue with Zosyn Continue with bronchodilator and IV Solu-Medrol Pulmonary team consult Cardiovascular surgery team consult Check KUB and give stool laxatives Labs and medication were reviewed.. Continue same treatment. Continue with symptomatic treatment. Resume home medication. Monitor lytes and vitals. DVT and GI prophylaxis. Further recommendations depends on the clinical course of the patient DVT prophylaxis: Subcutaneous heparin GI Prophylaxis: Pepcid PT/OT: Pending Prognosis is guarded
[2024-01-29 17:08] LABS: Glucose,Whole Blood 213 mg/dL (70-110)
[2024-01-29 20:15] LABS: Glucose,Whole Blood 160 mg/dL (70-110)
[2024-01-30 06:58] LABS: Glucose,Whole Blood 222 mg/dL (70-110)
--- NOTE | 2024-01-30 08:40 | P.PN ---
Subjective Progress Note Date: 01/30/24 Principal diagnosis: Recurrent right-sided pleural effusion. Past medical history significant for hypertension, hyperlipidemia, COPD wears 2 L of oxygen at home, diabetes mellitus type 2, coronary artery disease status post three-vessel coronary artery bypass grafting surgery related to 95, history of myocardial infarction, arthritis, learning disability, prostate disease, gout, and a remote history of nicotine dependence in which he quit 40 years ago. POD #1 Insertion of right Pleurx catheter under fluoroscopic guidance with drainage of pleural space. The patient was seen and examined in follow-up today 01/30/2024 at his bedside on the fifth floor medical oncology unit. The patient is currently laying in bed, is awake, alert, oriented x 3 and is in no acute apparent distress. The patient denies any complaints of pain at this time, although is complaining of some shortness of breath. Oxygen saturations are 95% on 3 L nasal cannula and he is achieving 1000 mL on his incentive spirometry with encouragement. He underwent a placement of right Pleurx catheter yesterday performed by Dr. Lo with 1.5 L of fluid drained. The Pleurx catheter dressing remains clean, dry and intact. Chest x-ray results reviewed. Objective - Vital Signs Vital signs: Vital Signs Temp 96.9 F L 01/30/24 07:00 Pulse 82 01/30/24 08:22 Resp 18 01/30/24 07:00 BP 138/77 01/30/24 07:00 Pulse Ox 96 01/30/24 07:00 FiO2 Intake & Output 01/29/24 01/30/24 01/30/24 18:59 06:59 18:59 Intake Total 200 120 Output Total 778 300 Balance -578 -180 Intake: IV 200 Oral 120 Output: Urine 775 300 Estimated Blood Loss 3 Other: Voiding Method Urinal Diaper Diaper External Catheter # Voids 1 - Exam CONSTITUTIONAL: Appears comfortable, cooperative, no acute distress RESPIRATORY: Lungs sounds diminished bilaterally Right greater than left. Respirations Symmetrical, tachypneic currently on 3 L nasal cannula with oxygen saturation 95%. Able to achieve 1000 mL on his incentive spirometry. Strong cough. CARDIOVASCULAR: S1, S2 present. Regular rate and rhythm. Palpable peripheral pulses bilaterally. No edema present. No calf pain or tenderness noted. GASTROINTESTINAL: Abdomen soft, nontender, slightly distended. Active bowel sounds present 4 quadrants. Tolerating diet. GENITOURINARY: Continues to void. Episodes of incontinence. INTEGUMENTARY: Skin is warm and dry with no clubbing or cyanosis present. NEUROLOGIC: Cranial nerves II through XII intact. MUSKULOSKELETAL: Able to move all extremities, strength equal bilaterally. PSYCHIATRIC: Alert and oriented to person place and time, appropriate affect, intact judgment and insight. - Allied health notes Allied health notes reviewed: nursing - Labs CBC & Chem 7: 01/29/24 03:05 01/29/24 03:05 Labs: Abnormal Lab Results - Last 24 Hours (Table) 01/29/24 01/29/24 01/29/24 Range/Units 03:05 03:05 09:22 WBC 11.59 H (4.50-10.00) X 10*3/uL Immature Gran # 0.19 H (0.00-0.04) X 10*3/uL Neutrophils # 10.19 H (1.80-7.70) X 10*3/uL Lymphocytes # 0.53 L (0.90-5.00) X 10*3/uL Eosinophils # 0 L (0.04-0.35) X 10*3/uL Chloride 93 L (96-109) mmol/L Anion Gap 13.70 H (4.00-12.00) mmol/L BUN 36.3 H (9.0-27.0) mg/dL BUN/Creatinine Ratio 36.30 H (12.00-20.00) Ratio Glucose 260 H (70-110) mg/dL POC Glucose (mg/dL) 192 H (70-110) mg/dL 01/29/24 01/29/24 01/29/24 Range/Units 12:02 17:07 20:09 WBC (4.50-10.00) X 10*3/uL Immature Gran # (0.00-0.04) X 10*3/uL Neutrophils # (1.80-7.70) X 10*3/uL Lymphocytes # (0.90-5.00) X 10*3/uL Eosinophils # (0.04-0.35) X 10*3/uL Chloride (96-109) mmol/L Anion Gap (4.00-12.00) mmol/L BUN (9.0-27.0) mg/dL BUN/Creatinine Ratio (12.00-20.00) Ratio Glucose (70-110) mg/dL POC Glucose (mg/dL) 237 H 213 H 160 H (70-110) mg/dL 01/30/24 Range/Units 06:58 WBC (4.50-10.00) X 10*3/uL Immature Gran # (0.00-0.04) X 10*3/uL Neutrophils # (1.80-7.70) X 10*3/uL Lymphocytes # (0.90-5.00) X 10*3/uL Eosinophils # (0.04-0.35) X 10*3/uL Chloride (96-109) mmol/L Anion Gap (4.00-12.00) mmol/L BUN (9.0-27.0) mg/dL BUN/Creatinine Ratio (12.00-20.00) Ratio Glucose (70-110) mg/dL POC Glucose (mg/dL) 222 H (70-110) mg/dL - Imaging and Cardiology Chest x-ray: report reviewed, image reviewed Assessment and Plan Assessment: Recurrent right pleural effusion, noted from his chart from [facility], status post right Pleurx catheter placement Recent diagnosis of lung cancer per pleural fluid cytology noted in his chart from [facility] Hypertension Hyperlipidemia Diabetes mellitus type 2 COPD with home oxygen use 2 L nasal cannula History of myocardial infarction in 1994 Coronary artery disease with history of three-vessel coronary artery bypass grafting surgery in 1994 Remote history of nicotine dependence quit smoking 40 years ago Plan: Drainage frequency dictated by patient symptoms, may be every day, every other day, weekly, or however often the patient is symptomatic. Consult home health care. May shower after 24 hours, no tub baths/hot tubs. Encourage use of incentive spirometry 10 times every hour while awake. Oxygen and bronchodilator management per pulmonary/critical care medicine. Medical management and other comorbidities per primary care service and other consultants. More recommendations follow based on patient's clinical course. Time with Patient: Less than 30
[2024-01-30 09:50] LABS: Basophils # (A) 0.03 X 10*3/uL (0.00-0.10); Basophils % (A) 0.2 %; Eosinophils # (A) 0 X 10*3/uL (0.04-0.35); Eosinophils % (A) 0 %; Lymphocytes # (A) 0.46 X 10*3/uL (0.90-5.00); Lymphocytes % (A) 3.5 %; MCH 29.9 pg (27.0-32.0); MCHC 32.6 g/dL (32.0-37.0); MCV 91.7 FL (80.0-97.0); Monocytes # (A) 0.77 X 10*3/uL (0.20-1.00); Monocytes % (A) 5.9 %; NRBC Per 100 WBC 0 X 10*3/uL (0.00-0.01); Neutrophils # (A) 11.51 X 10*3/uL (1.80-7.70); Neutrophils % (A) 88.6 %; Platelet Count 196 X 10*3/uL (140-440); RBC 4.69 X 10*6/uL (4.40-5.60); RDW 13.9 % (11.5-14.5); WBC 13.01 X 10*3/uL (4.50-10.00)
--- NOTE | 2024-01-30 10:39 | XR ---
EXAMINATION TYPE: XR chest 1V portable DATE OF EXAM: 01/30/2024 Comparison: 01/29/2024 Clinical History: 88-year-old male s/p PleurX placement Findings: Right-sided pleural catheter redemonstrated. Extensive pleural-parenchymal opacities throughout the r ight lung especially at the upper lung. Airspace opacity is worsening of the right lower lung now. In terstitial densities on the left are unchanged. Median sternotomy wires and post-CABG clips. Heart no rmal size. Impression: 1. Continued extensive patchy and confluent airspace opacities throughout the right lung especially a t the upper lung. 2. However, there is worsening airspace disease now at the right lower lung. 3. Right-sided pleural catheter in place. [facility], , 01/30/2024 10:37 AM
[2024-01-30 11:18] LABS: Blood Urea Nitrogen 34.9 mg/dL (9.0-27.0); Calcium 9.2 mg/dL (8.7-10.3); Carbon Dioxide 27.2 mmol/L (21.6-31.8); Chloride 92 mmol/L (96-109); Glucose 274 mg/dL (70-110); Potassium 4.5 mmol/L (3.5-5.5); Sodium 136 mmol/L (135-145)
--- NOTE | 2024-01-30 11:31 | P.PN ---
Subjective Progress Note Date: 01/30/24 Patient is an 88-year-old -Citizen Of [place] male with past medical history significant for former tobacco dependence, severe COPD, chronic oxygen dependence, occupational lung disease, recurrent pleural effusion status post thoracentesis. Patient reportedly recently treated for pneumonia, had a right-sided thoracentesis done at [facility], earlier in December,. Cytology reportedly positive for carcinoma, differential including neuroendocrine versus adenocarcinoma with neuroendocrine features. Has followed up in the pulmonary office with Dr. Vivar on January 10. No plans for [facility] hoscopy and transbronchial biopsy, as the patient's pulmonary status is marginal at best. He has a oncology appointment scheduled on 02/07/2024. He returned to the outside facility on 01/23/24, with a chief complaint of ongoing worsening shortness of breath. Also, right-sided chest pain and night sweats. A chest CT scan was was completed demonstrated a mass in the right upper lobe measured 10 x 4 cm, adjacent opacity with suspicion for infection and malignancy, recurrent large right pleural effusion, no evidence of pneumothorax. Patient was transferred to our facility yesterday for possible Pleurx catheter placement. Cardiothoracic team has already evaluated the patient. Patient also has medical history significant for hypertension, hyperlipidemia, coronary artery disease with previous CABG, type 2 diabetes mellitus, among other things. Patient is currently on the medical floor. His grandson is at bedside. He is on 3 L/min nasal cannula. SpO2 is 96%. He states that he is still short of breath. Tachypneic. Pursed lip breathing. Also, complaining of some right sided thorac ic level back pain. Separate concern is his constipation, although he did have a small bowel movement last night. No nausea or vomiting. No abdominal pain. CBC from outside facility: WBC count 13.7, hemoglobin 11.7, hematocrit 35.5, platelets 211. BMP from outside facility: Sodium 136, potassium 4.9, chloride 97, serum bicarb 30, BUN 23, creatinine 1.04, glucose 172. LFTs unremarkable. Covered empirically on Zosyn. Has been afebrile. The patient is seen today January 28, 2024 in follow-up on the regular medical floor. He is currently resting comfortably in bed. Awake and alert in no acute distress. He is maintaining O2 saturations in the 90s on 3 L/min per nasal cannula. He is been afebrile. Hemodynamically stable. No worsening shortness of breath, cough or congestion. Plan is for a right-sided Pleurx catheter placement today. He remains on DuoNeb inhalations, Symbicort. Antibiotics in the form of Zosyn. To receive cefazolin for the procedure. He is on IV diuretics. Currently in a -650 mL balance. The patient is seen today January 29, 2004 in follow-up on the regular medical floor. He is awake and alert in no acute distress. He was not able to obtain a Pleurx catheter to the right chest yesterday and the plan is for placement today. He denies any worsening shortness of breath, cough or congestion. He is continued on Symbicort, DuoNeb and elations, Solu-Medrol. Remains on antibiotics in the form of Zosyn. Remains on IV diuretics. Heparin for DVT p rophylaxis. He remains in a negative balance. White count 11.5. Hemoglobin 13.7. Platelets 212. Sodium 137. Potassium 4.4. Bicarb 30. BUN 36. Creatinine 1.0. Glucose 192. The patient is seen today January 30, 2024 in follow-up on the regular medical floor. He is currently resting in bed. Awake and alert in no acute distress. He did undergo a right-sided Pleurx catheter placement yesterday with 1.5 L removed. He is breathing easier today compared to yesterday. He is quite weak still. He is working with the incentive spirometer. He is maintaining good O2 saturations in the 90s on 3 L/min per nasal cannula. He is afebrile. Hemodynamically stable. Chest x-ray reveals extensive patchy and confluent airspace opacities throughout the right lung especially in the upper lung. There is some worsening airspace disease at the right lower lung. Right-sided Pleurx catheter in place. MRI of the brain revealed no evidence of intracranial mass, acute/subacute infarct or abnormal enhancement. White count 13.0. Hemoglobin 14.0. Platelets 196. Sodium 136. Potassium 4.5. Bicarb 27. BUN 35. Creatinine 1.0. Glucose 272. He is continued on DuoNeb inhalations, Symbicort, Solu-Medrol. Antibiotics in the form of Zosyn. He remains on IV diuretics. Currently in a -750 mL balance. Objective - Vital Signs Vital signs: Vital Signs Temp 96.9 F L 01/30/24 07:00 Pulse 82 01/30/24 08:22 Resp 18 01/30/24 07:00 BP 138/77 01/30/24 07:00 Pulse Ox 96 01/30/24 07:00 FiO2 Intake & Output 01/29/24 01/30/24 01/30/24 18:59 06:59 18:59 Intake Total 200 120 Output Total 778 300 350 Balance -578 -180 -350 Intake: IV 200 Oral 120 Output: Chest Tube Drainage 350 Pleural Catheter Right 350 Lower Anterior Chest Urine 775 300 Estimated Blood Loss 3 Other: Voiding Method Urinal Diaper Diaper Diaper External Catheter External Catheter # Voids 1 - Exam GENERAL EXAM: Alert, pleasant 88-year-old male patient, resting in bed, on 3 L nasal cannula, in no apparent distress. HEAD: Normocephalic. EYES: Normal reaction of pupils, equal size. NOSE: Clear with pink turbinates. THROAT: No erythema or exudates. NECK: No masses, no JVD. CHEST: No chest wall deformity. Right-sided Pleurx catheter in place. Dressing dry and intact. LUNGS: Equal air entry with diminished breath sounds in the right lung base, few scattered rhonchi. CVS: S1 and S2 normal with no audible murmur, regular rhythm. ABDOMEN: No hepatosplenomegaly, normal bowel sounds, no guarding or rigidity. SPINE: No scoliosis or deformity SKIN: No rashes CENTRAL NERVOUS SYSTEM: No focal deficits, tone is normal in all 4 extremities. EXTREMITIES: There is no peripheral edema. No clubbing, no cyanosis. Peripheral pulses are intact. - Labs CBC & Chem 7: 01/30/24 05:19 01/30/24 05:19 Labs: Abnormal Lab Results - Last 24 Hours (Table) 01/29/24 01/29/24 01/29/24 Range/Units 12:02 17:07 20:09 WBC (4.50-10.00) X 10*3/uL Immature Gran # (0.00-0.04) X 10*3/uL Neutrophils # (1.80-7.70) X 10*3/uL Lymphocytes # (0.90-5.00) X 10*3/uL Eosinophils # (0.04-0.35) X 10*3/uL Chloride (96-109) mmol/L Anion Gap (4.00-12.00) mmol/L BUN (9.0-27.0) mg/dL BUN/Creatinine Ratio (12.00-20.00) Ratio Glucose (70-110) mg/dL POC Glucose (mg/dL) 237 H 213 H 160 H (70-110) mg/dL 01/30/24 01/30/24 01/30/24 Range/Units 05:19 05:19 06:58 WBC 13.01 H (4.50-10.00) X 10*3/uL Immature Gran # 0.24 H (0.00-0.04) X 10*3/uL Neutrophils # 11.51 H (1.80-7.70) X 10*3/uL Lymphocytes # 0.46 L (0.90-5.00) X 10*3/uL Eosinophils # 0 L (0.04-0.35) X 10*3/uL Chloride 92 L (96-109) mmol/L Anion Gap 16.80 H (4.00-12.00) mmol/L BUN 34.9 H (9.0-27.0) mg/dL BUN/Creatinine Ratio 34.90 H (12.00-20.00) Ratio Glucose 274 H (70-110) mg/dL POC Glucose (mg/dL) 222 H (70-110) mg/dL Assessment and Plan Assessment: Recurrent right-sided pleural effusion, reportedly malignant, per fluid cytology derived from [facility]. Cytology reportedly positive for carcinoma, differential including neuroendocrine versus adenocarcinoma with neuroendocrine features. Right-sided Pleurx placed on January 29, 2024 Right upper lobe mass, A chest CT scan was was completed at outside facility demonstrated a mass in the right upper lobe measured 10 x 4 cm, adjacent opacity with suspicion for infection and malignancy, recurrent large right pleural effusion, no evidence of pneumothorax. Previously, not considered for bronchoscopy and transbronchial biopsy due to patient's poor baseline pulmonary status Acute COPD exacerbation Acute on chronic hypoxemic respiratory failure, secondary to above Severe chronic obstructive pulmonary disease Chronic oxygen dependence, with 2 L home O2 use History of occupational lung disease History of hypertension History of hyperlipidemia Diabetes mellitus type 2 Coronary artery disease with history of CABG Former tobacco dependence, quitting over 40 years ago Plan: The patient was seen and evaluated Medications and labs reviewed Chest x-ray, MRI of the brain reviewed Remains stable and on 3 L nasal cannula Continued on bronchodilators Procalcitonin negative, antibiotics discontinued Increase his activity as tolerated Plan is for home with home care at discharge Prognosis is guarded We will continue to follow I have personally seen and examined the patient, performed the documentation and the assessment and plan as written. Number of minutes spent on the visit: 10.
[2024-01-30 12:08] LABS: Glucose,Whole Blood 300 mg/dL (70-110)
--- NOTE | 2024-01-30 13:36 | P.PN ---
Subjective Progress Note Date: 01/30/24 88 years old -Tongan male with past medical history of multiple medical problems including lung cancer. Other medical problems include COPD, Diabetes Mellitus, Hypertension, Myocardial Infarction (IL), Osteoarthritis (OA), Prostate Disorder Patient was admitted initially to the ER [facility] for shortness of breath. Patient was found to have pneumonia and acute COPD exacerbation. He was treated on broad-spectrum antibiotics and IV Solu-Medrol. Also he is on 2 to 3 L oxygen via nasal cannula with acceptable oxygen saturation. Patient was concern for recurrent malignant pleural effusion therefore he was transferred to this facility to be evaluated for possible Pleurx catheter placement. Patient currently lying in bed looks comfortable multiple family members present at bedside. He is mildly tachypneic but denies chest pain. No significant cough and No other symptoms. No weakness numbness dizziness. Patient also complains from constipation for about 1 week with mild abdominal distention but abdomen soft with no significant tenderness Currently denies smoking alcohol or illicit drugs At baseline 2 L currently he is on 3 L oxygen No labs in this facility is. Check blood work in the morning 01/29/2024 Patient is seen and evaluated with nursing staff at bedside; ready to be transported to radiology He was not able to obtain a Pleurx catheter to the right chest yesterday and the plan is for placement today. He denies any worsening shortness of breath, cough or congestion. He is continued on Symbicort, DuoNeb and elations, Solu-Medrol. Remains on antibiotics in the form of Zosyn. Remains on IV diuretics. Heparin for DVT prophylaxis. He remains in a negative balance. White count 11.5. Hemoglobin 13.7. Platelets 212. Sodium 137. Potassium 4.4. Bicarb 30. BUN 36. Creatinine 1.0. Glucose 192. 24-hour interval change 01/30/2024 in follow-up on the regular medical floor. He is currently resting in bed. Awake and alert in no acute distress. He did undergo a right-sided Pleurx catheter placement yesterday with 1.5 L removed. He is breathing easier today compared to yesterday. He is quite weak still. He is working with the incentive spirometer. He is maintaining good O2 saturations in the 90s on 3 L/min per nasal cannula. He is afebrile. Hemodynamically stable. Chest x-ray reveals extensive patchy and confluent airspace opacities throughout the right lung especially in the upper lung. There is some worsening airspace disease at the right lower lung. Right-sided Pleurx catheter in place. MRI of the brain revealed no evidence of intracranial mass, acute/subacute infarct or abnormal enhancement. White count 13.0. Hemoglobin 14.0. Platelets 196. Sodium 136. Potassium 4.5. Bicarb 27. BUN 35. Creatinine 1.0. Glucose 272. He is continued on DuoNeb inhalations, Symbicort, Solu-Medrol. Antibiotics in the form of Zosyn. He remains on IV diuretics. Currently in a -750 mL balance. -- Patient status post right-sided Pleurx catheter placement; pulmonary service on board; recommending symptom management and increase activity as able Objective - Vital Signs Vital signs: Vital Signs Temp 96.9 F L 01/30/24 07:00 Pulse 82 01/30/24 08:22 Resp 18 01/30/24 07:00 BP 138/77 01/30/24 07:00 Pulse Ox 96 01/30/24 07:00 FiO2 Intake & Output 01/29/24 01/30/24 01/30/24 18:59 06:59 18:59 Intake Total 200 120 Output Total 778 300 Balance -578 -180 Intake: IV 200 Oral 120 Output: Urine 775 300 Estimated Blood Loss 3 Other: Voiding Method Urinal Diaper Diaper External Catheter # Voids 1 - Exam GENERAL: The patient is alert and oriented x3, not in any acute distress. Well developed, well nourished. HEENT: Pupils are round and equally reacting to light. EOMI. No scleral icterus. No conjunctival pallor. Normocephalic, atraumatic. No pharyngeal erythema. No thyromegaly. CARDIOVASCULAR: S1 and S2 present. No murmurs, rubs, or gallops. --PULMONARY: Decreased breath sounds on lung bases, bilateral scattered wheezing , no crackles. Tachypneic ABDOMEN: Soft, nontender, nondistended, normoactive bowel sounds. No palpable organomegaly. MUSCULOSKELETAL: No joint swelling or deformity. EXTREMITIES: No cyanosis, clubbing, or pedal edema. NEUROLOGICAL: Gross neurological examination did not reveal any focal deficits. SKIN: No rashes. no petechiae. - Labs CBC & Chem 7: 01/30/24 05:19 01/30/24 05:19 Labs: Abnormal Lab Results - Last 24 Hours (Table) 01/29/24 01/29/24 01/29/24 Range/Units 03:05 12:02 17:07 WBC (4.50-10.00) X 10*3/uL Immature Gran # (0.00-0.04) X 10*3/uL Neutrophils # (1.80-7.70) X 10*3/uL Lymphocytes # (0.90-5.00) X 10*3/uL Eosinophils # (0.04-0.35) X 10*3/uL Chloride 93 L (96-109) mmol/L Anion Gap 13.70 H (4.00-12.00) mmol/L BUN 36.3 H (9.0-27.0) mg/dL BUN/Creatinine Ratio 36.30 H (12.00-20.00) Ratio Glucose 260 H (70-110) mg/dL POC Glucose (mg/dL) 237 H 213 H (70-110) mg/dL 01/29/24 01/30/24 01/30/24 Range/Units 20:09 05:19 06:58 WBC 13.01 H (4.50-10.00) X 10*3/uL Immature Gran # 0.24 H (0.00-0.04) X 10*3/uL Neutrophils # 11.51 H (1.80-7.70) X 10*3/uL Lymphocytes # 0.46 L (0.90-5.00) X 10*3/uL Eosinophils # 0 L (0.04-0.35) X 10*3/uL Chloride (96-109) mmol/L Anion Gap (4.00-12.00) mmol/L BUN (9.0-27.0) mg/dL BUN/Creatinine Ratio (12.00-20.00) Ratio Glucose (70-110) mg/dL POC Glucose (mg/dL) 160 H 222 H (70-110) mg/dL Assessment and Plan Assessment: 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 Acute on chronic hypoxic respiratory failure secondary to above. Acute COPD exacerbation Possible postobstructive pneumonia. Constipation with mild abdominal distention Diabetes mellitus Hypertension Hyperlipidemia History of osteoarthritis BPH History of coronary artery disease s/p CABG Plan: Continue with breathing treatment Continue with Zosyn Continue with bronchodilator and IV Solu-Medrol Pulmonary team consult Cardiovascular surgery team consult Check KUB and give stool laxatives Labs and medication were reviewed.. Continue same treatment. Continue with symptomatic treatment. Resume home medication. Monitor lytes and vitals. DVT and GI prophylaxis. Further recommendations depends on the clinical course of the patient DVT prophylaxis: Subcutaneous heparin GI Prophylaxis: Pepcid PT/OT: Pending Prognosis is guarded
[2024-01-30 17:15] LABS: Glucose,Whole Blood 272 mg/dL (70-110)
[2024-01-30 19:45] LABS: Glucose,Whole Blood 242 mg/dL (70-110)
[2024-01-31 08:09] LABS: Glucose,Whole Blood 149 mg/dL (70-110)
--- NOTE | 2024-01-31 08:35 | XR ---
EXAMINATION TYPE: XR chest 1V portable DATE OF EXAM: 01/31/2024 6:40 AM CLINICAL INDICATION: Male, 88 years old with history of Status post right Pleurx; [facility] COMPARISON: 07/30/2023 TECHNIQUE: XR chest 1V portable Frontal view of the chest. FINDINGS: Lungs/Pleura: Similar multifocal airspace opacities. No evidence of pneumothorax. Blunting of the rig ht costophrenic angle. Left costophrenic angles intact. Pulmonary vascularity: Unremarkable. Heart/mediastinum: Cardiomediastinal silhouette is unremarkable. Musculoskeletal: No acute osseous pathology. Midline sternotomy wires are noted. Other findings: None Right Pleurx catheter with tip in appropriate position. No evidence for significant pneumothorax. IMPRESSION: 1. Similar multifocal airspace opacities. 2. Right Pleurx catheter in appropriate position. 3. Trace right pleural effusion. [facility], , 01/31/2024 8:33 AM
[2024-01-31 08:42] LABS: Basophils # (A) 0.04 X 10*3/uL (0.00-0.10); Basophils % (A) 0.3 %; Eosinophils # (A) 0 X 10*3/uL (0.04-0.35); Eosinophils % (A) 0 %; HCT 44.4 % (39.6-50.0); HGB 14.2 g/dL (13.0-17.0); Lymphocytes # (A) 0.81 X 10*3/uL (0.90-5.00); Lymphocytes % (A) 6.6 %; MCH 29.6 pg (27.0-32.0); MCV 92.5 FL (80.0-97.0); Monocytes # (A) 1.02 X 10*3/uL (0.20-1.00); Monocytes % (A) 8.4 %; NRBC Per 100 WBC 0 X 10*3/uL (0.00-0.01); Neutrophils % (A) 81.2 %; Platelet Count 157 X 10*3/uL (140-440); RDW 13.7 % (11.5-14.5)
[2024-01-31] MEDS: predniSONE 20 MG TAB PO SCH (08:42)
[2024-01-31 12:10] LABS: Glucose,Whole Blood 248 mg/dL (70-110)
--- NOTE | 2024-01-31 12:59 | P.PN ---
Subjective Progress Note Date: 01/31/24 Patient is an 88-year-old -Y[place]i male with past medical history significant for former tobacco dependence, severe COPD, chronic oxygen dependence, occupational lung disease, recurrent pleural effusion status post thoracentesis. Patient reportedly recently treated for pneumonia, had a right-sided thoracentesis done at [facility], earlier in December,. Cytology reportedly positive for carcinoma, differential including neuroendocrine versus adenocarcinoma with neuroendocrine features. Has followed up in the pulmonary office with Dr. Vivar on January 10. No plans for [facility] hoscopy and transbronchial biopsy, as the patient's pulmonary status is marginal at best. He has a oncology appointment scheduled on 02/07/2024. He returned to the outside facility on 01/23/24, with a chief complaint of ongoing worsening shortness of breath. Also, right-sided chest pain and night sweats. A chest CT scan was was completed demonstrated a mass in the right upper lobe measured 10 x 4 cm, adjacent opacity with suspicion for infection and malignancy, recurrent large right pleural effusion, no evidence of pneumothorax. Patient was transferred to our facility yesterday for possible Pleurx catheter placement. Cardiothoracic team has already evaluated the patient. Patient also has medical history significant for hypertension, hyperlipidemia, coronary artery disease with previous CABG, type 2 diabetes mellitus, among other things. Patient is currently on the medical floor. His grandson is at bedside. He is on 3 L/min nasal cannula. SpO2 is 96%. He states that he is still short of breath. Tachypneic. Pursed lip breathing. Also, complaining of some right sided thorac ic level back pain. Separate concern is his constipation, although he did have a small bowel movement last night. No nausea or vomiting. No abdominal pain. CBC from outside facility: WBC count 13.7, hemoglobin 11.7, hematocrit 35.5, platelets 211. BMP from outside facility: Sodium 136, potassium 4.9, chloride 97, serum bicarb 30, BUN 23, creatinine 1.04, glucose 172. LFTs unremarkable. Covered empirically on Zosyn. Has been afebrile. The patient is seen today January 28, 2024 in follow-up on the regular medical floor. He is currently resting comfortably in bed. Awake and alert in no acute distress. He is maintaining O2 saturations in the 90s on 3 L/min per nasal cannula. He is been afebrile. Hemodynamically stable. No worsening shortness of breath, cough or congestion. Plan is for a right-sided Pleurx catheter placement today. He remains on DuoNeb inhalations, Symbicort. Antibiotics in the form of Zosyn. To receive cefazolin for the procedure. He is on IV diuretics. Currently in a -650 mL balance. The patient is seen today January 29, 2004 in follow-up on the regular medical floor. He is awake and alert in no acute distress. He was not able to obtain a Pleurx catheter to the right chest yesterday and the plan is for placement today. He denies any worsening shortness of breath, cough or congestion. He is continued on Symbicort, DuoNeb and elations, Solu-Medrol. Remains on antibiotics in the form of Zosyn. Remains on IV diuretics. Heparin for DVT p rophylaxis. He remains in a negative balance. White count 11.5. Hemoglobin 13.7. Platelets 212. Sodium 137. Potassium 4.4. Bicarb 30. BUN 36. Creatinine 1.0. Glucose 192. The patient is seen today January 30, 2024 in follow-up on the regular medical floor. He is currently resting in bed. Awake and alert in no acute distress. He did undergo a right-sided Pleurx catheter placement yesterday with 1.5 L removed. He is breathing easier today compared to yesterday. He is quite weak still. He is working with the incentive spirometer. He is maintaining good O2 saturations in the 90s on 3 L/min per nasal cannula. He is afebrile. Hemodynamically stable. Chest x-ray reveals extensive patchy and confluent airspace opacities throughout the right lung especially in the upper lung. There is some worsening airspace disease at the right lower lung. Right-sided Pleurx catheter in place. MRI of the brain revealed no evidence of intracranial mass, acute/subacute infarct or abnormal enhancement. White count 13.0. Hemoglobin 14.0. Platelets 196. Sodium 136. Potassium 4.5. Bicarb 27. BUN 35. Creatinine 1.0. Glucose 272. He is continued on DuoNeb inhalations, Symbicort, Solu-Medrol. Antibiotics in the form of Zosyn. He remains on IV diuretics. Currently in a -750 mL balance. The patient is seen today January 31, 2024 in follow-up on the regular medical floor. He is currently resting comfortably in bed. Awake and alert in no acute distress. Maintaining O2 saturations in the 90s on 2 L/min per nasal cannula. He has normal staying at 75 cc/h. He is continued on DuoNeb inhalations, Symbicort, prednisone taper. Remains on IV diuretics. Currently in a negative balance. White count 12.2. Hemoglobin 14.2. Platelets 157. Glucose 149. Right-sided Pleurx catheter remains in place. Chest x-ray shows similar multifocal airspace opacities. Trace right pleural effusion. Cytology pending. Objective - Vital Signs Vital signs: Vital Signs Temp 97.4 F L 01/31/24 08:00 Pulse 81 01/31/24 11:56 Resp 18 01/31/24 08:00 BP 125/71 01/31/24 08:00 Pulse Ox 96 01/31/24 08:00 FiO2 Intake & Output 01/30/24 01/31/24 01/31/24 18:59 06:59 18:59 Intake Total 540 120 Output Total 1000 Balance -460 120 Intake: Oral 540 120 Output: Chest Tube Drainage 350 Pleural Catheter Right 350 Lower Anterior Chest Urine 650 Other: Voiding Method Diaper External Catheter External Catheter # Voids 1 - Exam GENERAL EXAM: Alert, pleasant 88-year-old male patient, resting in bed, on 3 L nasal cannula, in no apparent distress. HEAD: Normocephalic. EYES: Normal reaction of pupils, equal size. NOSE: Clear with pink turbinates. THROAT: No erythema or exudates. NECK: No masses, no JVD. CHEST: No chest wall deformity. Right-sided Pleurx catheter in place. Dressing dry and intact. LUNGS: Equal air entry with diminished breath sounds in the right lung base, few scattered rhonchi. CVS: S1 and S2 normal with no audible murmur, regular rhythm. ABDOMEN: No hepatosplenomegaly, normal bowel sounds, no guarding or rigidity. SPINE: No scoliosis or deformity SKIN: No rashes CENTRAL NERVOUS SYSTEM: No focal deficits, tone is normal in all 4 extremities. EXTREMITIES: There is no peripheral edema. No clubbing, no cyanosis. Peripheral pulses are intact. - Labs CBC & Chem 7: 09/16/24 06:05 01/30/24 05:19 Labs: Abnormal Lab Results - Last 24 Hours (Table) 01/30/24 01/30/24 01/31/24 Range/Units 17:14 19:43 06:05 WBC 12.20 H (4.50-10.00) X 10*3/uL Immature Gran # 0.43 H (0.00-0.04) X 10*3/uL Neutrophils # 9.90 H (1.80-7.70) X 10*3/uL Lymphocytes # 0.81 L (0.90-5.00) X 10*3/uL Monocytes # 1.02 H (0.20-1.00) X 10*3/uL Eosinophils # 0 L (0.04-0.35) X 10*3/uL POC Glucose (mg/dL) 272 H 242 H (70-110) mg/dL 01/31/24 01/31/24 Range/Units 08:07 12:07 WBC (4.50-10.00) X 10*3/uL Immature Gran # (0.00-0.04) X 10*3/uL Neutrophils # (1.80-7.70) X 10*3/uL Lymphocytes # (0.90-5.00) X 10*3/uL Monocytes # (0.20-1.00) X 10*3/uL Eosinophils # (0.04-0.35) X 10*3/uL POC Glucose (mg/dL) 149 H 248 H (70-110) mg/dL Assessment and Plan Assessment: Recurrent right-sided pleural effusion, reportedly malignant, per fluid cytology derived from [facility]. Cytology reportedly positive for carcinoma, differential including neuroendocrine versus adenocarcinoma with neuroendocrine features. Right-sided Pleurx placed on January 29, 2024 Right upper lobe mass, A chest CT scan was was completed at outside facility demonstrated a mass in the right upper lobe measured 10 x 4 cm, adjacent opacity with suspicion for infection and malignancy, recurrent large right pleural effusion, no evidence of pneumothorax. Previously, not considered for bronchoscopy and transbronchial biopsy due to patient's poor baseline pulmonary status Acute COPD exacerbation Acute on chronic hypoxemic respiratory failure, secondary to above Severe chronic obstructive pulmonary disease Chronic oxygen dependence, with 2 L home O2 use History of occupational lung disease History of hypertension History of hyperlipidemia Diabetes mellitus type 2 Coronary artery disease with history of CABG Former tobacco dependence, quitting over 40 years ago Plan: The patient was seen and evaluated Medications and labs reviewed Chest x-ray reviewed Remains stable and on 2 L nasal cannula Continued on bronchodilators Increase his activity as tolerated PT/OT recommending subacute rehabilitation Case management following I have personally seen and examined the patient, performed the documentation and the assessment and plan as written. Number of minutes spent on the visit: 10.
[2024-01-31] MEDS ORDERED: ALBUTEROL HFA INHALER INHALATION PRN ×2 (14:02)
--- NOTE | 2024-01-31 16:05 | P.PN ---
Subjective Progress Note Date: 01/31/24 S/p right pleurx placement with 1.5L removed. Stating SOB/MICHAEL has been waxing and waning, but has improved since procedure SPO2 96% on 3L Objective - Vital Signs Vital signs: Vital Signs Temp 97.4 F L 01/31/24 08:00 Pulse 78 01/31/24 11:49 Resp 18 01/31/24 08:00 BP 125/71 01/31/24 08:00 Pulse Ox 96 01/31/24 08:00 FiO2 Intake & Output 01/30/24 01/31/24 01/31/24 18:59 06:59 18:59 Intake Total 540 120 Output Total 1000 Balance -460 120 Intake: Oral 540 120 Output: Chest Tube Drainage 350 Pleural Catheter Right 350 Lower Anterior Chest Urine 650 Other: Voiding Method Diaper External Catheter External Catheter # Voids 1 - Constitutional General appearance: Present: no acute distress - EENT Eyes: Present: anicteric sclerae, EOMI ENT: Present: hearing grossly normal - Respiratory Respiratory: right: diminished, rales - Cardiovascular Rhythm: regular - Gastrointestinal General gastrointestinal: Present: soft. Absent: tenderness - Integumentary Integumentary: Absent: cyanotic - Musculoskeletal Musculoskeletal: Present: strength equal bilaterally - Labs CBC & Chem 7: 01/31/24 06:05 01/30/24 05:19 Labs: Abnormal Lab Results - Last 24 Hours (Table) 01/30/24 01/30/24 01/30/24 Range/Units 12:07 17:14 19:43 WBC (4.50-10.00) X 10*3/uL Immature Gran # (0.00-0.04) X 10*3/uL Neutrophils # (1.80-7.70) X 10*3/uL Lymphocytes # (0.90-5.00) X 10*3/uL Monocytes # (0.20-1.00) X 10*3/uL Eosinophils # (0.04-0.35) X 10*3/uL POC Glucose (mg/dL) 300 H 272 H 242 H (70-110) mg/dL 01/31/24 01/31/24 Range/Units 06:05 08:07 WBC 12.20 H (4.50-10.00) X 10*3/uL Immature Gran # 0.43 H (0.00-0.04) X 10*3/uL Neutrophils # 9.90 H (1.80-7.70) X 10*3/uL Lymphocytes # 0.81 L (0.90-5.00) X 10*3/uL Monocytes # 1.02 H (0.20-1.00) X 10*3/uL Eosinophils # 0 L (0.04-0.35) X 10*3/uL POC Glucose (mg/dL) 149 H (70-110) mg/dL Assessment and Plan (1) Malignant pleural effusion Current Visit: Yes Status: Acute Priority: High Code(s): J91.0 - MALIGNANT PLEURAL EFFUSION SNOMED Code(s): 177227609 Plan: Malignant pleural effusion: Presented to [facility] for progressing shortness of breath. CT chest with contrast was obtained showing mass in the right upper lobe measuring 10 x 4 cm. With suspected multifocal infection in the right lung on the background of right upper lobe mass and large pleural effusion. He was then transferred to [facility] for evaluation by cardiothoracic surgery for right Pleurx catheter placement -Underwent right thoracentesis on 01/06/2024 with 1 L removed. Cytology was positive for metastatic carcinoma, differential including neuroendocrine carcinoma versus adenocarcinoma with neuroendocrine features. 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 Cytology pending. NGS and PDL-1 requested on pleural fluid, and will also plan to obtain liquid biopsy outpt to further confirm diagnosis. However, at this time based on findings, appears to be a lung primary -MRI brain negative for metastatic disease -Follow-up with Dr. Nanette Guerrero is scheduled on 02/07/2024 Discussed findings/results with patient and family. All questions and concerns were answered attests: I have seen and examined patient, performed H&P, developed impr ession and plan of care. Discussed with dictator. Agree with documentation, dictated as a scribe
[2024-01-31 17:07] LABS: Glucose,Whole Blood 199 mg/dL (70-110)
[2024-01-31] MEDS: metFORMIN 500 MG TAB PO SCH (17:27)
[2024-01-31] MEDS: GLIMEPIRIDE 4 MG TAB PO SCH (17:30)
[2024-01-31 19:35] LABS: Glucose,Whole Blood 180 mg/dL (70-110)
[2024-01-31] MEDS ORDERED: NON FORMULARY DRUG (Fluticasone Propion/Salmeterol [Advair Hfa 230-21 Mcg Inhaler] 8 GM Gm INHALATION SCH (20:00)
[2024-01-31] MEDS ORDERED: NON FORMULARY DRUG (Simvastatin 10 MG Tab) PO SCH (21:00)
[2024-02-01 00:41] LABS: Appearance,Urine Clear (Clear); Bilirubin,Urine Negative (Negative); Blood,Urine Negative (Negative); Color,Urine Yellow; Glucose,Urine (UA) Negative (Negative); Hyaline Casts,Urine 15 /lpf (0-2); Ketones,Urine Negative (Negative); Leukocyte Esterase,Urine Negative (Negative); Mucus,Urine Few /hpf; Nitrite,Urine Negative (Negative); PH, Urine 5.5 (5.0-8.0); Protein,Urine 1+ (Negative); RBC,Urine <1 /hpf (0-5); Specific Gravity,Urine 1.025 (1.001-1.035); Urobilinogen,Urine <2.0 mg/dL (<2.0); WBC,Urine <1 /hpf (0-5)
--- NOTE | 2024-02-01 05:01 | PN ---
PROGRESS NOTE DATE OF SERVICE: 01/31/2024 SUBJECTIVE: An 88-year-old gentleman who was admitted with malignant pleural effusion with possible cytology related to lung cancer with right upper lobe lung mass, had PleurX drainage placed. The patient had significant drainage. The patient also had blood tinged sputum also. The patient complains of tiredness and weakness. Most recent chest x-ray showed significant lesions on the right side. Multiple consultants are following the patient closely. PAST MEDICAL HISTORY: Reviewed. REVIEW OF SYSTEM: A 14-point review is negative except as mentioned earlier. CURRENT MEDICATIONS: Reviewed include [place] 5 mg. the rest of medications reviewed. PHYSICAL EXAMINATION: VITAL SIGNS: Pulse is 80, blood pressure 120/70, and respirations 18. HEENT: Conjunctivae normal. CARDIOVASCULAR: S1, S2. RESPIRATIONS: Breath sounds diminished at the bases. A few scattered rhonchi and crackles. ABDOMEN: Soft. NERVOUS SYSTEM: Nonfocal. LABORATORY DATA: Glucose 248. ASSESSMENT: 1. Malignant right pleural effusion, status post PleurX drainage. 2. 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 3. Acute on chronic hypoxic respiratory failure. 4. Chronic obstructive pulmonary disease acute exacerbation. 5. Postop history of pneumonia. 6. Diabetes mellitus type 2. 7. Hypertension. 8. Multiple medical issues. 9. Generalized tiredness and weakness. RECOMMENDATIONS: Recommend to continue current medications. Otherwise, at this time, I recommend symptomatic treatment. Overall prognosis extremely guarded because of multiple complex medical issues. Recommend PT/OT evaluation also. Prognosis guarded. Further recommendations to follow. See orders for details. Oncology input appreciated. MMODL / IJN: [id number] /
[2024-02-01 07:12] LABS: Glucose,Whole Blood 73 mg/dL (70-110)
[2024-02-01 08:37] LABS: Basophils # (A) 0.07 X 10*3/uL (0.00-0.10); Basophils % (A) 0.5 %; Eosinophils # (A) 0 X 10*3/uL (0.04-0.35); Eosinophils % (A) 0 %; HCT 43.9 % (39.6-50.0); HGB 14.2 g/dL (13.0-17.0); Lymphocytes # (A) 0.83 X 10*3/uL (0.90-5.00); Lymphocytes % (A) 5.9 %; MCH 29.8 pg (27.0-32.0); MCHC 32.3 g/dL (32.0-37.0); MCV 92.2 FL (80.0-97.0); Mean Platelet Volume 10.3 FL (9.5-12.2); Monocytes % (A) 6.4 %; NRBC Per 100 WBC 0 X 10*3/uL (0.00-0.01); Neutrophils # (A) 11.86 X 10*3/uL (1.80-7.70); Neutrophils % (A) 83.7 %; Platelet Count 158 X 10*3/uL (140-440); RBC 4.76 X 10*6/uL (4.40-5.60); RDW 13.8 % (11.5-14.5); WBC 14.15 X 10*3/uL (4.50-10.00)
[2024-02-01 10:34] LABS: BUN/Creat Ratio 39.11 Ratio (12.00-20.00); Blood Urea Nitrogen 35.2 mg/dL (9.0-27.0); Calcium 9.4 mg/dL (8.7-10.3); Chloride 92 mmol/L (96-109); Glucose 87 mg/dL (70-110); Potassium 4.2 mmol/L (3.5-5.5); Sodium 138 mmol/L (135-145)
[2024-02-01 12:20] LABS: Glucose,Whole Blood 139 mg/dL (70-110)
[2024-02-01] MEDS ORDERED: LORazepam 0.5 MG TAB PO PRN (12:58)
--- NOTE | 2024-02-01 13:21 | P.PN ---
Subjective Progress Note Date: 02/01/24 Patient is an 88-year-old -[place]alt[place] male with past medical history significant for former tobacco dependence, severe COPD, chronic oxygen dependence, occupational lung disease, recurrent pleural effusion status post thoracentesis. Patient reportedly recently treated for pneumonia, had a right-sided thoracentesis done at [facility], earlier in December,. Cytology reportedly positive for carcinoma, differential including neuroendocrine versus adenocarcinoma with neuroendocrine features. Has followed up in the pulmonary office with Dr. Vivar on January 10. No plans for [facility] hoscopy and transbronchial biopsy, as the patient's pulmonary status is marginal at best. He has a oncology appointment scheduled on 02/07/2024. He returned to the outside facility on 01/23/24, with a chief complaint of ongoing worsening shortness of breath. Also, right-sided chest pain and night sweats. A chest CT scan was was completed demonstrated a mass in the right upper lobe measured 10 x 4 cm, adjacent opacity with suspicion for infection and malignancy, recurrent large right pleural effusion, no evidence of pneumothorax. Patient was transferred to our facility yesterday for possible Pleurx catheter placement. Cardiothoracic team has already evaluated the patient. Patient also has medical history significant for hypertension, hyperlipidemia, coronary artery disease with previous CABG, type 2 diabetes mellitus, among other things. Patient is currently on the medical floor. His grandson is at bedside. He is on 3 L/min nasal cannula. SpO2 is 96%. He states that he is still short of breath. Tachypneic. Pursed lip breathing. Also, complaining of some right sided thorac ic level back pain. Separate concern is his constipation, although he did have a small bowel movement last night. No nausea or vomiting. No abdominal pain. CBC from outside facility: WBC count 13.7, hemoglobin 11.7, hematocrit 35.5, platelets 211. BMP from outside facility: Sodium 136, potassium 4.9, chloride 97, serum bicarb 30, BUN 23, creatinine 1.04, glucose 172. LFTs unremarkable. Covered empirically on Zosyn. Has been afebrile. The patient is seen today January 28, 2024 in follow-up on the regular medical floor. He is currently resting comfortably in bed. Awake and alert in no acute distress. He is maintaining O2 saturations in the 90s on 3 L/min per nasal cannula. He is been afebrile. Hemodynamically stable. No worsening shortness of breath, cough or congestion. Plan is for a right-sided Pleurx catheter placement today. He remains on DuoNeb inhalations, Symbicort. Antibiotics in the form of Zosyn. To receive cefazolin for the procedure. He is on IV diuretics. Currently in a -650 mL balance. The patient is seen today January 29, 2004 in follow-up on the regular medical floor. He is awake and alert in no acute distress. He was not able to obtain a Pleurx catheter to the right chest yesterday and the plan is for placement today. He denies any worsening shortness of breath, cough or congestion. He is continued on Symbicort, DuoNeb and elations, Solu-Medrol. Remains on antibiotics in the form of Zosyn. Remains on IV diuretics. Heparin for DVT p rophylaxis. He remains in a negative balance. White count 11.5. Hemoglobin 13.7. Platelets 212. Sodium 137. Potassium 4.4. Bicarb 30. BUN 36. Creatinine 1.0. Glucose 192. The patient is seen today January 30, 2024 in follow-up on the regular medical floor. He is currently resting in bed. Awake and alert in no acute distress. He did undergo a right-sided Pleurx catheter placement yesterday with 1.5 L removed. He is breathing easier today compared to yesterday. He is quite weak still. He is working with the incentive spirometer. He is maintaining good O2 saturations in the 90s on 3 L/min per nasal cannula. He is afebrile. Hemodynamically stable. Chest x-ray reveals extensive patchy and confluent airspace opacities throughout the right lung especially in the upper lung. There is some worsening airspace disease at the right lower lung. Right-sided Pleurx catheter in place. MRI of the brain revealed no evidence of intracranial mass, acute/subacute infarct or abnormal enhancement. White count 13.0. Hemoglobin 14.0. Platelets 196. Sodium 136. Potassium 4.5. Bicarb 27. BUN 35. Creatinine 1.0. Glucose 272. He is continued on DuoNeb inhalations, Symbicort, Solu-Medrol. Antibiotics in the form of Zosyn. He remains on IV diuretics. Currently in a -750 mL balance. The patient is seen today January 31, 2024 in follow-up on the regular medical floor. He is currently resting comfortably in bed. Awake and alert in no acute distress. Maintaining O2 saturations in the 90s on 2 L/min per nasal cannula. He has normal staying at 75 cc/h. He is continued on DuoNeb inhalations, Symbicort, prednisone taper. Remains on IV diuretics. Currently in a negative balance. White count 12.2. Hemoglobin 14.2. Platelets 157. Glucose 149. Right-sided Pleurx catheter remains in place. Chest x-ray shows similar multifocal airspace opacities. Trace right pleural effusion. Cytology pending. The patient is seen today February 01, 2024 in follow-up on the regular medical floor. He is awake and alert in no acute distress. Sitting up in bed having b reakfast. Denies any worsening shortness of breath, cough or congestion. He is maintaining O2 saturations in the 90s on 3 L/min per nasal cannula. He remains quite weak. White count 14.1. Hemoglobin 14.2. Platelets 158. Sodium 138. Potassium 4.2. Chloride 92. BUN 35. Creatinine 0.9. Glucose 139. He is continued on DuoNeb inhalations, Symbicort, prednisone taper. He is on heparin for DVT prophylaxis. Remains on IV diuretics. Robitussin for his cough. Cytology still pending. Objective - Vital Signs Vital signs: Vital Signs Temp 98.2 F 02/01/24 08:00 Pulse 93 02/01/24 09:55 Resp 16 02/01/24 08:00 BP 120/73 02/01/24 09:55 Pulse Ox 98 02/01/24 08:00 FiO2 Intake & Output 01/31/24 02/01/24 02/01/24 18:59 06:59 18:59 Intake Total 118 Output Total 200 Balance 118 -200 Intake: Oral 118 Output: Urine 200 Other: Voiding Method Diaper Diaper Incontinent Incontinent # Voids 2 - Exam GENERAL EXAM: Alert, weak, frail 88-year-old male patient, on 3 L nasal cannula, in no apparent distress. HEAD: Normocephalic. EYES: Normal reaction of pupils, equal size. NOSE: Clear with pink turbinates. THROAT: No erythema or exudates. NECK: No masses, no JVD. CHEST: No chest wall deformity. Right-sided Pleurx catheter in place. Dressing dry and intact. LUNGS: Equal air entry with diminished breath sounds in the right lung base, few scattered rhonchi. CVS: S1 and S2 normal with no audible murmur, regular rhythm. ABDOMEN: No hepatosplenomegaly, normal bowel sounds, no guarding or rigidity. SPINE: No scoliosis or deformity SKIN: No rashes CENTRAL NERVOUS SYSTEM: No focal deficits, tone is normal in all 4 extremities. EXTREMITIES: There is no peripheral edema. No clubbing, no cyanosis. Periphe ral pulses are intact. - Labs CBC & Chem 7: 02/01/24 02:39 02/01/24 02:39 Labs: Abnormal Lab Results - Last 24 Hours (Table) 01/31/24 01/31/24 02/01/24 Range/Units 17:05 19:32 00:22 WBC (4.50-10.00) X 10*3/uL Immature Gran # (0.00-0.04) X 10*3/uL Neutrophils # (1.80-7.70) X 10*3/uL Lymphocytes # (0.90-5.00) X 10*3/uL Eosinophils # (0.04-0.35) X 10*3/uL Chloride (96-109) mmol/L Carbon Dioxide (21.6-31.8) mmol/L Anion Gap (4.00-12.00) mmol/L BUN (9.0-27.0) mg/dL BUN/Creatinine Ratio (12.00-20.00) Ratio POC Glucose (mg/dL) 199 H 180 H (70-110) mg/dL Urine Protein 1+ H (Negative) Hyaline Casts 15 H (0-2) /lpf Urine Mucus Few H (None) /hpf 02/01/24 02/01/24 02/01/24 Range/Units 02:39 02:39 12:07 WBC 14.15 H (4.50-10.00) X 10*3/uL Immature Gran # 0.49 H (0.00-0.04) X 10*3/uL Neutrophils # 11.86 H (1.80-7.70) X 10*3/uL Lymphocytes # 0.83 L (0.90-5.00) X 10*3/uL Eosinophils # 0 L (0.04-0.35) X 10*3/uL Chloride 92 L (96-109) mmol/L Carbon Dioxide 33.0 H (21.6-31.8) mmol/L Anion Gap 13.00 H (4.00-12.00) mmol/L BUN 35.2 H (9.0-27.0) mg/dL BUN/Creatinine Ratio 39.11 H (12.00-20.00) Ratio POC Glucose (mg/dL) 139 H (70-110) mg/dL Urine Protein (Negative) Hyaline Casts (0-2) /lpf Urine Mucus (None) /hpf Assessment and Plan Assessment: Recurrent right-sided pleural effusion, reportedly malignant, per fluid cytology derived from [facility]. Cytology reportedly positive for carcinoma, differential including neuroendocrine versus adenocarcinoma with neuroendocrine features. Right-sided Pleurx placed on January 29, 2024 Right upper lobe mass, A chest CT scan was was completed at outside facility demonstrated a mass in the right upper lobe measured 10 x 4 cm, adjacent opacity with suspicion for infection and malignancy, recurrent large right pleural effusion, no evidence of pneumothorax. Previously, not considered for bronchoscopy and transbronchial biopsy due to patient's poor baseline pulmonary status Acute COPD exacerbation Acute on chronic hypoxemic respiratory failure, secondary to above Severe chronic obstructive pulmonary disease Chronic oxygen dependence, with 2 L home O2 use History of occupational lung disease History of hypertension History of hyperlipidemia Diabetes mellitus type 2 Coronary artery disease with history of CABG Former tobacco dependence, quitting over 40 years ago Plan: The patient was seen and evaluated Medications and labs reviewed Remains stable and on 3 L nasal cannula Continued on bronchodilators Increase his activity as tolerated Awaiting placement, possibly [place] I have personally seen and examined the patient, performed the documentation and the assessment and plan as written. Number of minutes spent on the visit: 10.
--- NOTE | 2024-02-01 14:37 | PN ---
PROGRESS NOTE DATE OF SERVICE: 02/01/2024 SUBJECTIVE: This is an 88-year-old gentleman admitted with malignant pleural effusion, had PleurX drainage catheter placed, but the patient has significant evidence of malignancy. The patient also reporting not wanting any motor testing at this time. The chest x-ray showed significant lesions on the right side. The patient also had hemoptysis. PAST MEDICAL HISTORY: Reviewed. REVIEW OF SYSTEMS: A 14-point review is negative except as mentioned earlier. CURRENT MEDICATIONS: Reviewed. PHYSICAL EXAMINATION: VITAL SIGNS: Pulse is 99, blood pressure 94/70, respirations 18. CHEST: A few scattered rhonchi and crackles. ABDOMEN: Soft, nontender. NERVOUS SYSTEM: Diffusely weak. LABORATORY DATA: WBC 14.15. Rest of the labs are noted. ASSESSMENT: 1. Malignant right pleural effusion, status post PleurX drainage. 2. 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 3. Acute on chronic hypoxic respiratory failure. 4. Chronic obstructive pulmonary disease acute exacerbation. 5. Postobstructive pneumonia. 6. Diabetes mellitus, type 2. 7. Hypertension. 8. Multiple medical issues. 9. Generalized tiredness and weakness. RECOMMENDATIONS: Recommend to continue current medications and we will await Hematology/Oncology input regarding further workup and code status. Otherwise, prognosis extremely guarded. Discussed with the patient. Discussed with staff. Further recommendations to follow. As mentioned earlier, the patient had extensive lesions in the chest x-ray. MMODL / IJN: [id number] /
--- NOTE | 2024-02-01 15:14 | XR ---
EXAMINATION TYPE: XR chest 1V portable DATE OF EXAM: 02/01/2024 2:22 PM CLINICAL INDICATION: Male, 88 years old with history of SOB, recent right pleurx placement; [facility] COMPARISON: Chest radiographs from 01/31/2024 TECHNIQUE: XR chest 1V portable Frontal view of the chest. FINDINGS: Lungs/Pleura: Similar multifocal airspace opacities. No evidence of pneumothorax or pleural effusion. Pulmonary vascularity: Unremarkable. Heart/mediastinum: Cardiomediastinal silhouette is unremarkable. Musculoskeletal: No acute osseous pathology. Midline sternotomy wires are noted. Other findings: None Lines/Tubes: Right thoracotomy tube is present without evidence of pneumothorax. IMPRESSION: 1. Similar multifocal airspace opacities. 2. Right thoracotomy tube in place without evidence for pneumothorax. [facility], , 02/01/2024 3:12 PM
[2024-02-01 17:15] LABS: Glucose,Whole Blood 170 mg/dL (70-110)
[2024-02-01] MEDS: ACETAMINOPHEN TAB 325 MG TAB PO PRN (20:10)
[2024-02-01 20:23] LABS: Glucose,Whole Blood 167 mg/dL (70-110)
[2024-02-02 07:10] LABS: Glucose,Whole Blood 89 mg/dL (70-110)
[2024-02-02] MEDS: amLODIPine 5 MG TAB PO SCH (09:20)
[2024-02-02 10:29] VITALS: BMI 23.5
--- NOTE | 2024-02-02 11:20 | P.PN ---
Subjective Progress Note Date: 02/02/24 Patient is an 88-year-old -[place] male with past medical history significant for former tobacco dependence, severe COPD, chronic oxygen dependence, occupational lung disease, recurrent pleural effusion status post thoracentesis. Patient reportedly recently treated for pneumonia, had a right-sided thoracentesis done at [facility], earlier in December,. Cytology reportedly positive for carcinoma, differential including neuroendocrine versus adenocarcinoma with neuroendocrine features. Has followed up in the pulmonary office with Dr. Vivar on January 10. No plans for [facility] hoscopy and transbronchial biopsy, as the patient's pulmonary status is marginal at best. He has a oncology appointment scheduled on 02/07/2024. He returned to the outside facility on 01/23/24, with a chief complaint of ongoing worsening shortness of breath. Also, right-sided chest pain and night sweats. A chest CT scan was was completed demonstrated a mass in the right upper lobe measured 10 x 4 cm, adjacent opacity with suspicion for infection and malignancy, recurrent large right pleural effusion, no evidence of pneumothorax. Patient was transferred to our facility yesterday for possible Pleurx catheter placement. Cardiothoracic team has already evaluated the patient. Patient also has medical history significant for hypertension, hyperlipidemia, coronary artery disease with previous CABG, type 2 diabetes mellitus, among other things. Patient is currently on the medical floor. His grandson is at bedside. He is on 3 L/min nasal cannula. SpO2 is 96%. He states that he is still short of breath. Tachypneic. Pursed lip breathing. Also, complaining of some right sided thorac ic level back pain. Separate concern is his constipation, although he did have a small bowel movement last night. No nausea or vomiting. No abdominal pain. CBC from outside facility: WBC count 13.7, hemoglobin 11.7, hematocrit 35.5, platelets 211. BMP from outside facility: Sodium 136, potassium 4.9, chloride 97, serum bicarb 30, BUN 23, creatinine 1.04, glucose 172. LFTs unremarkable. Covered empirically on Zosyn. Has been afebrile. The patient is seen today January 28, 2024 in follow-up on the regular medical floor. He is currently resting comfortably in bed. Awake and alert in no acute distress. He is maintaining O2 saturations in the 90s on 3 L/min per nasal cannula. He is been afebrile. Hemodynamically stable. No worsening shortness of breath, cough or congestion. Plan is for a right-sided Pleurx catheter placement today. He remains on DuoNeb inhalations, Symbicort. Antibiotics in the form of Zosyn. To receive cefazolin for the procedure. He is on IV diuretics. Currently in a -650 mL balance. The patient is seen today January 29, 2004 in follow-up on the regular medical floor. He is awake and alert in no acute distress. He was not able to obtain a Pleurx catheter to the right chest yesterday and the plan is for placement today. He denies any worsening shortness of breath, cough or congestion. He is continued on Symbicort, DuoNeb and elations, Solu-Medrol. Remains on antibiotics in the form of Zosyn. Remains on IV diuretics. Heparin for DVT p rophylaxis. He remains in a negative balance. White count 11.5. Hemoglobin 13.7. Platelets 212. Sodium 137. Potassium 4.4. Bicarb 30. BUN 36. Creatinine 1.0. Glucose 192. The patient is seen today January 30, 2024 in follow-up on the regular medical floor. He is currently resting in bed. Awake and alert in no acute distress. He did undergo a right-sided Pleurx catheter placement yesterday with 1.5 L removed. He is breathing easier today compared to yesterday. He is quite weak still. He is working with the [employer] spirometer. He is maintaining good O2 saturations in the 90s on 3 L/min per nasal cannula. He is afebrile. Hemodynamically stable. Chest x-ray reveals extensive patchy and confluent airspace opacities throughout the right lung especially in the upper lung. There is some worsening airspace disease at the right lower lung. Right-sided Pleurx catheter in place. MRI of the brain revealed no evidence of intracranial mass, acute/subacute infarct or abnormal enhancement. White count 13.0. Hemoglobin 14.0. Platelets 196. Sodium 136. Potassium 4.5. Bicarb 27. BUN 35. Creatinine 1.0. Glucose 272. He is continued on DuoNeb inhalations, Symbicort, Solu-Medrol. Antibiotics in the form of Zosyn. He remains on IV diuretics. Currently in a -750 mL balance. The patient is seen today January 31, 2024 in follow-up on the regular medical floor. He is currently resting comfortably in bed. Awake and alert in no acute distress. Maintaining O2 saturations in the 90s on 2 L/min per nasal cannula. He has normal staying at 75 cc/h. He is continued on DuoNeb inhalations, Symbicort, prednisone taper. Remains on IV diuretics. Currently in a negative balance. White count 12.2. Hemoglobin 14.2. Platelets 157. Glucose 149. Right-sided Pleurx catheter remains in place. Chest x-ray shows similar multifocal airspace opacities. Trace right pleural effusion. Cytology pending. The patient is seen today February 01, 2024 in follow-up on the regular medical floor. He is awake and alert in no acute distress. Sitting up in bed having b reakfast. Denies any worsening shortness of breath, cough or congestion. He is maintaining O2 saturations in the 90s on 3 L/min per nasal cannula. He remains quite weak. White count 14.1. Hemoglobin 14.2. Platelets 158. Sodium 138. Potassium 4.2. Chloride 92. BUN 35. Creatinine 0.9. Glucose 139. He is continued on DuoNeb inhalations, Symbicort, prednisone taper. He is on heparin for DVT prophylaxis. Remains on IV diuretics. Robitussin for his cough. Cytology still pending. The patient is seen today February 02, 2024 in follow-up on the regular medical floor. He is resting comfortably in bed. Awake and alert in no acute distress. He is maintaining O2 saturations in the 90s on 3 L/min per nasal cannula. He is continued on DuoNeb inhalations, Symbicort, prednisone taper. Heparin for DVT prophylaxis. Chest x-ray reveals similar multifocal airspace opacities. Right Pleurx catheter remains in place. No evidence of pneumothorax. Glucose 89. Objective - Vital Signs Vital signs: Vital Signs Temp 97.6 F 02/02/24 07:06 Pulse 88 02/02/24 07:55 Resp 18 02/02/24 07:06 BP 96/52 02/02/24 07:06 Pulse Ox 97 02/02/24 07:49 FiO2 Intake & Output 02/01/24 02/02/24 02/02/24 18:59 06:59 18:59 Intake Total 320 Balance 320 Weight 74.4 kg Intake: Oral 320 Other: Voiding Method Diaper Diaper Incontinent Incontinent # Voids 1 1 - Exam GENERAL EXAM: Alert, weak, frail 88-year-old male patient, resting in bed, on 3 L nasal cannula, in no apparent distress. HEAD: Normocephalic. EYES: Normal reaction of pupils, equal size. NOSE: Clear with pink turbinates. THROAT: No erythema or exudates. NECK: No masses, no JVD. CHEST: No chest wall deformity. Right-sided Pleurx catheter in place. Dressing dry and intact. LUNGS: Equal air entry with diminished breath sounds in the right lung base, few scattered rhonchi. CVS: S1 and S2 normal with no audible murmur, regular rhythm. ABDOMEN: No hepatosplenomegaly, normal bowel sounds, no guarding or rigidity. SPINE: No scoliosis or deformity SKIN: No rashes CENTRAL NERVOUS SYSTEM: No focal deficits, tone is normal in all 4 extremities. EXTREMITIES: There is no peripheral edema. No clubbing, no cyanosis. Peripheral pulses are intact. - Labs CBC & Chem 7: 02/01/24 02:39 02/01/24 02:39 Labs: Abnormal Lab Results - Last 24 Hours (Table) 02/01/24 02/01/24 02/01/24 Range/Units 12:07 17:12 20:20 POC Glucose (mg/dL) 139 H 170 H 167 H (70-110) mg/dL Assessment and Plan Assessment: Recurrent right-sided pleural effusion, reportedly malignant, per fluid cytology derived from [facility]. Cytology reportedly positive for carcinoma, differential including neuroendocrine versus adenocarcinoma with neuroendocrine features. Right-sided Pleurx placed on January 29, 2024 Right upper lobe mass, A chest CT scan was was completed at outside facility demonstrated a mass in the right upper lobe measured 10 x 4 cm, adjacent opacity with suspicion for infection and malignancy, recurrent large right pleural effusion, no evidence of pneumothorax. Previously, not considered for bronchoscopy and transbronchial biopsy due to patient's poor baseline pulmonary status Acute COPD exacerbation Acute on chronic hypoxemic respiratory failure, secondary to above Severe chronic obstructive pulmonary disease Chronic oxygen dependence, with 2 L home O2 use History of occupational lung disease History of hypertension History of hyperlipidemia Diabetes mellitus type 2 Coronary artery disease with history of CABG Former tobacco dependence, quitting over 40 years ago Plan: The patient was seen and evaluated Chest x-ray, medications and labs reviewed Continue the current treatment plan Awaiting placement per case management I have personally seen and examined the patient, performed the documentation and the assessment and plan as written. Number of minutes spent on the visit: 10.
[2024-02-02 12:13] LABS: Glucose,Whole Blood 104 mg/dL (70-110)
--- NOTE | 2024-02-02 15:37 | P.PN ---
Subjective Progress Note Date: 02/02/24 88 years old -Serbian male with past medical history of multiple medical problems including lung cancer. Other medical problems include COPD, Diabetes Mellitus, Hypertension, Myocardial Infarction ([place]), Osteoarthritis ([place]), Prostate Disorder Patient was admitted initially to the ER [facility] for shortness of breath. Patient was found to have pneumonia and acute COPD exacerbation. He was treated on broad-spectrum antibiotics and IV Solu-Medrol. Also he is on 2 to 3 L oxygen via nasal cannula with acceptable oxygen saturation. Patient was concern for recurrent malignant pleural effusion therefore he was transferred to this facility to be evaluated for possible Pleurx catheter placement. Patient currently lying in bed looks comfortable multiple family members present at bedside. He is mildly tachypneic but denies chest pain. No significant cough and No other symptoms. No weakness numbness dizziness. Patient also complains from constipation for about 1 week with mild abdominal distention but abdomen soft with no significant tenderness Currently denies smoking alcohol or illicit drugs At baseline 2 L currently he is on 3 L oxygen No labs in this facility is. Check blood work in the morning 01/29/2024 Patient is seen and evaluated with nursing staff at bedside; ready to be transported to radiology He was not able to obtain a Pleurx catheter to the right chest yesterday and the plan is for placement today. He denies any worsening shortness of breath, cough or congestion. He is continued on Symbicort, DuoNeb and elations, Solu-Medrol. Remains on antibiotics in the form of Zosyn. Remains on IV diuretics. Heparin for DVT prophylaxis. He remains in a negative balance. White count 11.5. Hemoglobin 13.7. Platelets 212. Sodium 137. Potassium 4.4. Bicarb 30. BUN 36. Creatinine 1.0. Glucose 192. 24-hour interval change 01/30/2024 in follow-up on the regular medical floor. He is currently resting in bed. Awake and alert in no acute distress. He did undergo a right-sided Pleurx catheter placement yesterday with 1.5 L removed. He is breathing easier today compared to yesterday. He is quite weak still. He is working with the incentive spirometer. He is maintaining good O2 saturations in the 90s on 3 L/min per nasal cannula. He is afebrile. Hemodynamically stable. Chest x-ray reveals extensive patchy and confluent airspace opacities throughout the right lung especially in the upper lung. There is some worsening airspace disease at the right lower lung. Right-sided Pleurx catheter in place. MRI of the brain revealed no evidence of intracranial mass, acute/subacute infarct or abnormal enhancement. White count 13.0. Hemoglobin 14.0. Platelets 196. Sodium 136. Potassium 4.5. Bicarb 27. BUN 35. Creatinine 1.0. Glucose 272. He is continued on DuoNeb inhalations, Symbicort, Solu-Medrol. Antibiotics in the form of Zosyn. He remains on IV diuretics. Currently in a -750 mL balance. -- Patient status post right-sided Pleurx catheter placement; pulmonary service on board; recommending symptom management and increase activity as able 02/02/2024 Patient is seen in follow-up today tachypneic and difficulty in breathing and has expressed to nursing staff and his family he does not want to proceed with any further treatment and they have arranged to discuss and have a meeting with hospice. Oncology following at this time and had been awaiting to further dis cuss treatment plans. Patient is status post right Pleurx catheter and reports has not been drained since Wednesday although chest x-ray does not display much fluid to be drained. CT surgery to evaluate for possible palliative drainage. Family working on financial evaluation for [facility]. Patient is agreeable with this and patient is also no code. Review of systems: Constitutional: reports of fatigue, no fever, or chills Cardiovascular: No reports of chest pain or palpitations Respiratory: reports of continued shortness of breath and difficulty in breathing GI: No reports of nausea, vomiting, or diarrhea, not eating much at all : No reports of dysuria or retention Neurovascular: reports of weakness and feeling exhausted All medications have been reviewed Physical exam: Gen: This is a 88-year-old male who is awake, alert and oriented x 2-3, tachypneic, anxious, restless, extremely dyspneic, thin build, elderly appearing, ill-appearing, cachectic with significant muscle wasting noted HEENT: Head is atraumatic, normocephalic. Pupils equal, round. Sclerae is ani cteric. NECK: Supple. No JVD. No lymphadenopathy. No thyromegaly. LUNGS: Diminished breath sounds bilaterally, with coarse rhonchi noted. Increased respirations on exam. No intercostal retractions. HEART: S1, S2 are muffled ABDOMEN: Soft. Bowel sounds are present. No masses. No tenderness. EXTREMITIES: No pedal edema. No calf tenderness. NEUROLOGICAL: Patient is awake, alert and oriented x3. Cranial nerves 2 through 12 are grossly intact. 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 Acute on chronic hypoxic respiratory failure secondary to above. Status post Pleurx catheter placement on the right side Acute COPD exacerbation Possible postobstructive pneumonia. Constipation with mild abdominal distention Diabetes mellitus Hypertension Hyperlipidemia History of osteoarthritis BPH History of coronary artery disease s/p CABG Moderate protein calorie malnutrition with a BMI of 23.5 GI prophylaxis DVT prophylaxis No code Plan: Patient being followed by pulmonary along with cardiothoracic surgery as well as oncology and reports he is no longer wanting to pursue any further treatment or interventions and family is agreeable and have placed a consult to [facility]. Currently awaiting financial assessment Continue with Pleurx catheter and CT surgery to eval for possible drainage. Patient was just drained on Wednesday and most recent chest x-ray done on the shows similar multifocal airspace opacities with a right thoracotomy tube in place without evidence of pneumothorax. No significant fluid noted on imaging Continue with supportive care and laxatives as needed for pain Overall prognosis remains extremely poor Possible discharge to [facility] in the next 24 hours The impression and plan of care has been dictated by Ivon Grijalva, Nurse Pr actitioner as directed. Dr. John MD I have performed a history and examination and MDM of this patient, discussed the same with the dictator, and agree with the dictator's assessment and plan as written ,documented as a scribe. Based on total visit time, I have performed more than 50% of the visit. Objective - Vital Signs Vital signs: Vital Signs Temp 97.6 F 02/02/24 07:06 Pulse 89 02/02/24 12:09 Resp 16 02/02/24 12:09 BP 107/63 02/02/24 12:09 Pulse Ox 94 L 02/02/24 12:09 FiO2 Intake & Output 02/01/24 02/02/24 02/02/24 18:59 06:59 18:59 Intake Total 320 Balance 320 Weight 74.4 kg Intake: Oral 320 Other: Voiding Method Diaper Diaper Diaper Incontinent Incontinent Incontinent # Voids 1 1 - Labs CBC & Chem 7: 02/01/24 02:39 02/01/24 02:39 Labs: Abnormal Lab Results - Last 24 Hours (Table) 02/01/24 02/01/24 Range/Units 17:12 20:20 POC Glucose (mg/dL) 170 H 167 H (70-110) mg/dL
--- NOTE | 2024-02-02 17:34 | P.PN ---
Subjective Progress Note Date: 02/02/24 S/p right pleurx placement with 1.5L removed. Additional 200ml removed 2 days ago. Reporting SOB at todays visit. Denies pain. Patient stating, "I dont want to do this anymore, I just want to ." SPO2 has been stable in high 90s on 3L Objective - Vital Signs Vital signs: Vital Signs Temp 97.6 F 02/02/24 07:06 Pulse 88 02/02/24 07:55 Resp 18 02/02/24 07:06 BP 96/52 02/02/24 07:06 Pulse Ox 97 02/02/24 07:49 FiO2 Intake & Output 02/01/24 02/02/24 02/02/24 18:59 06:59 18:59 Intake Total 320 Balance 320 Weight 74.4 kg Intake: Oral 320 Other: Voiding Method Diaper Diaper Incontinent Incontinent # Voids 1 1 - Constitutional General appearance: Present: mild distress - EENT ENT: Present: hearing grossly normal - Respiratory Details: breathing labored, diminished in RUL - Integumentary Integumentary: Absent: cyanotic - Musculoskeletal Musculoskeletal: Present: generalized weakness - Psychiatric Psychiatric: Present: A&O x's 3 - Labs CBC & Chem 7: 02/01/24 02:39 02/01/24 02:39 Labs: Abnormal Lab Results - Last 24 Hours (Table) 02/01/24 02/01/24 02/01/24 Range/Units 12:07 17:12 20:20 POC Glucose (mg/dL) 139 H 170 H 167 H (70-110) mg/dL Assessment and Plan (1) Malignant pleural effusion Current Visit: Yes Status: Acute Priority: High Code(s): J91.0 - MALIGNANT PLEURAL EFFUSION SNOMED Code(s): 880661324 Plan: Malignant pleural effusion: Presented to [facility] for progressing shortness of breath. CT chest with contrast was obtained showing mass in the right upper lobe measuring 10 x 4 cm. With suspected multifocal infection in the right lung on the background of right upper lobe mass and large pleural effusion. He was then transferred to [facility] for evaluation by cardiothoracic surgery for right Pleurx catheter placement -Underwent right thoracentesis on 01/06/2024 with 1 L removed. Cytology was po sitive for metastatic carcinoma, differential including neuroendocrine carcinoma versus adenocarcinoma with neuroendocrine features. -CT abdomen pelvis was also obtained at [facility] which showed metastatic disease in the liver -S/p right Pleurx placement, with 1.5L removed. 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 NGS and PDL-1 requested on pleural fluid -MRI brain negative for metastatic disease -Follow-up with Dr. Nanette Guerrero is scheduled on 02/07/2024 *Patient reporting persisting SOB. At todays visit, patient stated, "I dont want to do this anymore, I just want to ." Discussed clinical findings and diagnosis with patient. He states he no longer would like to pursue further treatment/workup for his malignancy. Comfort care measures were discussed and patient verbalized he would like to go home on hospice. CODE status has also been addressed with family, and patient is a DNR Spoke with case management who has been in contact with daughter, and they are currently working on placement at [facility]
[2024-02-02 17:35] LABS: Glucose,Whole Blood 98 mg/dL (70-110)
[2024-02-02 20:34] LABS: Glucose,Whole Blood 102 mg/dL (70-110)
[2024-02-02] MEDS: LORazepam 2 MG/ML INJ IV PRN (20:47)
[2024-02-03 07:24] LABS: Glucose,Whole Blood 101 mg/dL (70-110)
[2024-02-03 07:42] VITALS: BP 112/63; RESP 16; TEMP 97.8
[2024-02-03 08:35] VITALS: PULSE 93
--- NOTE | 2024-02-03 09:51 | P.DS ---
Providers Date of admission: 01/26/24 10:30 Expected date of discharge: 02/03/24 Attending physician: Elo Velasco Consults: 01/26/24 15:30 Consult Physician Urgent Consulting Provider: Jesus Lo Consult Reason/Comments: recurrent pl effusion Do you want consulting provider notified?: Yes 01/26/24 17:27 Consult Physician Routine Consulting Provider: Marlen Cuba Consult Reason/Comments: Recurrent PLeural effusion Do you want consulting provider notified?: Yes 01/27/24 04:59 Consult Physician Routine Consulting Provider: Gabriel Guerrero Consult Reason/Comments: New diagnosis lung cancer, malignant pleural effusio n Do you want consulting provider notified?: Yes, Notify in am Primary care physician: [facility] Course: Final diagnosis 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 Acute on chronic hypoxic respiratory failure secondary to above. Status post Pleurx catheter placement on the right side Acute COPD exacerbation Possible postobstructive pneumonia. Constipation with mild abdominal distention Diabetes mellitus Hypertension Hyperlipidemia History of osteoarthritis BPH History of coronary artery disease s/p CABG Moderate protein calorie malnutrition with a BMI of 23.5 GI prophylaxis DVT prophylaxis No code Discharge disposition Patient is being discharged in a stable condition with guarded prognosis to [facility]. Total time taken is greater than 35 minutes. Hospital course 88 years old -Wallisian male with past medical history of multiple medical problems including lung cancer. Other medical problems include COPD, Diabetes Mellitus, Hypertension, Myocardial Infarction ([place]), Osteoarthritis (OA), Prostate Disorder Patient was admitted initially to the ER [facility] for shortness of breath. Patient was found to have pneumonia and acute COPD exacerbation. He was treated on broad-spectrum antibiotics and IV Solu-Medrol. Also he is on 2 to 3 L oxygen via nasal cannula with acceptable oxygen saturation. Patient was concern for recurrent malignant pleural effusion therefore he was transferred to this facility to be evaluated for possible Pleurx catheter placement. Patient currently lying in bed looks comfortable multiple family members present at bedside. He is mildly tachypneic but denies chest pain. No significant cough and No other symptoms. No weakness numbness dizziness. Patient also complains from constipation for about 1 week with mild abdominal distention but abdomen soft with no significant tenderness Currently denies smoking alcohol or illicit drugs At baseline 2 L currently he is on 3 L oxygen No labs in this facility is. Check blood work in the morning 02/02/2024 Patient is seen in follow-up today tachypneic and difficulty in breathing and has expressed to nursing staff and his family he does not want to proceed with any further treatment and they have arranged to discuss and have a meeting with hospice. Oncology following at this time and had been awaiting to further discuss treatment plans. Patient is status post right Pleurx catheter and reports has not been drained since Wednesday although chest x-ray does not display much fluid to be drained. CT surgery to evaluate for possible palliative drainage. Family working on financial evaluation for [facility]. Patient is agreeable with this and patient is also no code. 02/03/2024 Patient is seen this morning in financial assessment and agreements have been completed and patient will be going to [facility] on comfort measures. Patient will continue with Pleurx catheter for palliative drainage as needed at the [facility] and supportive care. Currently no reports of chest pain, no worsening shortness of breath, or palpitations. Patient is afebrile. Patient will be going to [facility] today. Overall poor prognosis. Physical exam: Gen: This is a 88-year-old male who is awake, alert and oriented x 2-3, tachypneic, anxious, restless, extremely dyspneic, thin build, elderly appear ing, ill-appearing, cachectic with significant muscle wasting noted HEENT: Head is atraumatic, normocephalic. Pupils equal, round. Sclerae is anicteric. NECK: Supple. No JVD. No lymphadenopathy. No thyromegaly. LUNGS: Diminished breath sounds bilaterally, with coarse rhonchi noted. Increased respirations on exam. No intercostal retractions. HEART: S1, S2 are muffled ABDOMEN: Soft. Bowel sounds are present. No masses. No tenderness. EXTREMITIES: No pedal edema. No calf tenderness. NEUROLOGICAL: Patient is awake, alert and oriented x3. Cranial nerves 2 through 12 are grossly intact. Diffusely weak The impression and plan of care has been dictated by Ivon Grijlava, Nurse Practitioner as directed. Dr. John MD I have performed a history and examination and MDM of this patient, discussed the same with the dictator, and agree with the dictator's assessment and plan as written ,documented as a scribe. Based on total visit time, I have performed more than 50% of the visit. Patient Condition at Discharge: Poor Plan - Discharge Summary Discharge Rx Participant: No New Discharge Prescriptions: New predniSONE [Deltasone] 40 mg PO DAILY tab Ipratropium-Albuterol Nebulize [Duoneb 0.5 mg-3 mg/3 ml Soln] 3 ml INHALATION RT-QID PRN each PRN Reason: Shortness Of Breath Or Wheezing HYDROcodone/APAP 5-325MG [[place] 5-325] 1 each PO Q6HR PRN tab PRN Reason: Pain guaiFENesin-DM 100-10MG/5ML [Robitussin DM] 10 ml PO Q6HR PRN ml PRN Reason: Cough Acetaminophen Tab [Tylenol] 325 mg PO Q6HR PRN tab PRN Reason: Fever And/ Or Pain ALPRAZolam [Xanax] 0.5 mg PO BID PRN tab PRN Reason: Anxiety Glimepiride [Amaryl] 4 mg PO AC-BRKFST tab LORazepam [Ativan] 0.5 mg PO Q6H PRN tab PRN Reason: Anxiety Ipratropium-Albuterol Nebulize [Duoneb 0.5 mg-3 mg/3 ml Soln] 3 ml INHALATION RT-QID each Budesonide-Formot 160-4.5 Mcg [Symbicort 160-4.5 Mcg Inhaler] 2 puff INHALATION RT-BID each Continue Fluticasone Propion/Salmeterol [Advair Hfa 230-21 Mcg Inhaler] 2 puff INHALATION RT-BID Albuterol Sulfate [Ventolin HFA] 2 puff INHALATION RT-QID PRN PRN Reason: Shortness Of Breath metFORMIN HCL [Glucophage] 500 mg PO BID-W/MEALS Furosemide [Lasix] 20 mg PO MOWEFR Albuterol Sulfate [Albuterol Sulfate Hfa] 2 puff INHALATION RT-Q6H PRN PRN Reason: Wheezing Discontinued Glimepiride [Amaryl] 4 mg PO AC-BRKFST No Action predniSONE 5 mg PO DAILY Simvastatin [Zocor] 10 mg PO HS amLODIPine [Norvasc] 10 mg PO DAILY carvediloL [Coreg] 12.5 mg PO BID-W/MEALS Discharge Medication List Albuterol Sulfate [Albuterol Sulfate Hfa] 2 puff INHALATION RT-Q6H PRN 01/26/24 [History] Albuterol Sulfate [Ventolin HFA] 2 puff INHALATION RT-QID PRN 01/26/24 [History] Fluticasone Propion/Salmeterol [Advair Hfa 230-21 Mcg Inhaler] 2 puff INHALATION RT-BID 01/26/24 [History] Furosemide [Lasix] 20 mg PO MOWEFR 01/26/24 [History] Simvastatin [Zocor] 10 mg PO HS 01/26/24 [History] amLODIPine [Norvasc] 10 mg PO DAILY 01/26/24 [History] carvediloL [Coreg] 12.5 mg PO BID-W/MEALS 01/26/24 [History] metFORMIN HCL [Glucophage] 500 mg PO BID-W/MEALS 01/26/24 [History] predniSONE 5 mg PO DAILY 01/26/24 [History] ALPRAZolam [Xanax] 0.5 mg PO BID PRN tab 02/02/24 [Rx] Acetaminophen Tab [Tylenol] 325 mg PO Q6HR PRN tab 02/02/24 [Rx] Budesonide-Formot 160-4.5 Mcg [Symbicort 160-4.5 Mcg Inhaler] 2 puff INHALATION RT-BID each 02/02/24 [Rx] Glimepiride [Amaryl] 4 mg PO AC-BRKFST tab 02/02/24 [Rx] HYDROcodone/APAP 5-325MG [[place] 5-325] 1 each PO Q6HR PRN tab 02/02/24 [Rx] Ipratropium-Albuterol Nebulize [Duoneb 0.5 mg-3 mg/3 ml Soln] 3 ml INHALATION RT-QID each 02/02/24 [Rx] Ipratropium-Albuterol Nebulize [Duoneb 0.5 mg-3 mg/3 ml Soln] 3 ml INHALATION RT-QID PRN each 02/02/24 [Rx] LORazepam [Ativan] 0.5 mg PO Q6H PRN tab 02/02/24 [Rx] guaiFENesin-DM 100-10MG/5ML [Robitussin DM] 10 ml PO Q6HR PRN ml 02/02/24 [Rx] predniSONE [Deltasone] 40 mg PO DAILY tab 02/02/24 [Rx] Follow up Appointment(s)/Referral(s): Hospice[facility] [REFERRING] - 1 Week Jesus Lo MD [STAFF PHYSICIAN] - As Needed (Once drainage is less than 50 mL three times in a row, notify the surgery office for possible removal.) Activity/Diet/Wound Care/Special Instructions: Patient will be going to [facility] house PLEURX discharge instructions: 1. Home Care is ordered, they will obtain new bottles. 2. May shower after 24 hours, no tub baths/hot tubs. 3. Do not drain more than 1 liter or 1000 mL in 24 hours. 4. New drainage bottle needed with each drainage. 5. Drainage frequency dictated by patient symptoms, may be every day, every other day, weekly, or however often the patient is symptomatic. 6. Please notify NUCLEAR ENGINEER or office if temperature >101F, excessive pain at insertion site, drainage consistency changes to cloudy or smells bad, catheter falls out, or anything else that concerns you. 7. Contact surgery office with weekly drainage amounts. May fax the amounts. 8. Once drainage is less than 50 mL three times in a row, notify the surgery office for possible removal. Surgery office: , fax Order for pleurex supplies sent to [facility] ([phone]) . Discharge Disposition: OTHER INSTITUTION NOT DEFINED
--- NOTE | 2024-02-03 12:02 | P.PN ---
Subjective Progress Note Date: 02/03/24 Principal diagnosis: Shortness of breath. Patient is an 88-year-old -[place] male with past medical history significant for former tobacco dependence, severe COPD, chronic oxygen dependence, occupational lung disease, recurrent pleural effusion status post thoracentesis. Patient reportedly recently treated for pneumonia, had a right- sided thoracentesis done at [facility], earlier in December,. Cytology reportedly positive for carcinoma, differential including neuroendocrine versus adenocarcinoma with neuroendocrine features. Has followed up in the pulmonary office with Dr. Vivar on January 10. No plans for bronchoscopy and transbronchial biopsy, as the patient's pulmonary status is marginal at best. He has a oncology appointment scheduled on 02/07/2024. He returned to the outside facility on 01/23/24, with a chief complaint of ongoing worsening shortness of breath. Also, right-sided chest pain and night sweats. A chest CT scan was was completed demonstrated a mass in the right upper lobe measured 10 x 4 cm, adjacent opacity with suspicion for infection and malignancy, recurrent large right pleural effusion, no evidence of pneumothorax. Patient was transferred to our facility yesterday for possible Pleurx catheter placement. Cardiothoracic team has already evaluated the patient. Patient also has medical history significant for hypertension, hyperlipidemia, coronary artery disease with previous CABG, type 2 diabetes mellitus, among other things. Patient is currently on the medical floor. His grandson is at bedside. He is on 3 L/min nasal cannula. SpO2 is 96%. He states that he is still short of breath. Tachypneic. Pursed lip breathing. Also, complaining of some right sided thoracic level back pain. Separate concern is his constipation, although he did have a small bowel movement last night. No nausea or vomiting. No abdominal pain. CBC from outside facility: WBC count 13.7, hemoglobin 11.7, hematocrit 35.5, platelets 211. BMP from outside facility: Sodium 136, potassium 4.9, chloride 97, serum bicarb 30, BUN 23, creatinine 1.04, glucose 172. LFTs unremarkable. Covered empirically on Zosyn. Has been afebrile. The patient is seen today January 28, 2024 in follow-up on the regular medical floor. He is currently resting comfortably in bed. Awake and alert in no acute distress. He is maintaining O2 saturations in the 90s on 3 L/min per nasal cannula. He is been afebrile. Hemodynamically stable. No worsening shortness of breath, cough or congestion. Plan is for a right-sided Pleurx catheter placement today. He remains on DuoNeb inhalations, Symbicort. Antibiotics in the form of Zosyn. To receive cefazolin for the procedure. He is on IV diuretics. Currently in a -650 mL balance. The patient is seen today January 29, 2004 in follow-up on the regular medical floor. He is awake and alert in no acute distress. He was not able to obtain a Pleurx catheter to the right chest yesterday and the plan is for placement today. He denies any worsening shortness of breath, cough or congestion. He is continued on Symbicort, DuoNeb and elations, Solu-Medrol. Remains on antibioti cs in the form of Zosyn. Remains on IV diuretics. Heparin for DVT prophylaxis. He remains in a negative balance. White count 11.5. Hemoglobin 13.7. Platelets 212. Sodium 137. Potassium 4.4. Bicarb 30. BUN 36. Creatinine 1.0. Glucose 192. The patient is seen today January 30, 2024 in follow-up on the regular medical floor. He is currently resting in bed. Awake and alert in no acute distress. He did undergo a right-sided Pleurx catheter placement yesterday with 1.5 L removed. He is breathing easier today compared to yesterday. He is quite weak still. He is working with the incentive spirometer. He is maintaining good O2 saturations in the 90s on 3 L/min per nasal cannula. He is afebrile. Hemodynamically stable. Chest x-ray reveals extensive patchy and confluent airspace opacities throughout the right lung especially in the upper lung. There is some worsening airspace disease at the right lower lung. Right-sided Pleurx catheter in place. MRI of the brain revealed no evidence of intracranial mass, acute/subacute infarct or abnormal enhancement. White count 13.0. Hemoglobin 14.0. Platelets 196. Sodium 136. Potassium 4.5. Bicarb 27. BUN 35. Creatinine 1.0. Glucose 272. He is continued on DuoNeb inhalations, Symbicort, Solu-Medrol. Antibiotics in the form of Zosyn. He remains on IV diuretics. Currently in a -750 mL balance. The patient is seen today January 31, 2024 in follow-up on the regular medical floor. He is currently resting comfortably in bed. Awake and alert in no acute distress. Maintaining O2 saturations in the 90s on 2 L/min per nasal cannula. He has normal staying at 75 cc/h. He is continued on DuoNeb inhalations, Sym bicort, prednisone taper. Remains on IV diuretics. Currently in a negative balance. White count 12.2. Hemoglobin 14.2. Platelets 157. Glucose 149. Right-sided Pleurx catheter remains in place. Chest x-ray shows similar multifocal airspace opacities. Trace right pleural effusion. Cytology pending. The patient is seen today February 01, 2024 in follow-up on the regular medical floor. He is awake and alert in no acute distress. Sitting up in bed having breakfast. Denies any worsening shortness of breath, cough or congestion. He is maintaining O2 saturations in the 90s on 3 L/min per nasal cannula. He remains quite weak. White count 14.1. Hemoglobin 14.2. Platelets 158. Sodium 138. Potassium 4.2. Chloride 92. BUN 35. Creatinine 0.9. Glucose 139. He is continued on DuoNeb inhalations, Symbicort, prednisone taper. He is on heparin for DVT prophylaxis. Remains on IV diuretics. Robitussin for his cough. Cytology still pending. The patient is seen today February 02, 2024 in follow-up on the regular medical floor. He is resting comfortably in bed. Awake and alert in no acute distress. He is maintaining O2 saturations in the 90s on 3 L/min per nasal cannula. He is continued on DuoNeb inhalations, Symbicort, prednisone taper. Heparin for DVT prophylaxis. Chest x-ray reveals similar multifocal airspace opacities. Right Pleurx catheter remains in place. No evidence of pneumothorax. Glucose 89. Progress note dated February 03, 2024. The patient is an 88-year-old black male who is seen today in room 518. The patient continues on O2 at 3 L. Saturations are 96%. The patient is not receiving any IV fluids. The patient is pending discharge, to a local custodial/rehab facility. No new labs today other than a glucose of 101. Objective - Vital Signs Vital signs: Vital Signs Temp 97.8 F 02/03/24 07:05 Pulse 93 02/03/24 08:34 Resp 16 02/03/24 07:05 BP 112/63 02/03/24 07:05 Pulse Ox 94 L 02/03/24 08:16 FiO2 Intake & Output 02/02/24 02/03/24 02/03/24 18:59 06:59 18:59 Weight 74.4 kg Other: Voiding Method Diaper Diaper Incontinent Incontinent # Voids 1 2 1 - Exam No acute distress, oriented 3. Currently on 3 L. No respiratory distress. HEENT examination is grossly unremarkable. Mucous membranes are moist. No oral lesions. Neck supple. Full range of motion. No adenopathy thyromegaly or neck vein distention. Cardiovascular examination reveals regular rhythm rate. S1-S2 normal. No S3 or S4. No discernible murmur noted. Lungs reveal clear breath sounds. Breath sounds are equal bilaterally. No adventitious lung sounds including wheezes rhonchi or crackles. Right-sided Pleurx catheter is noted. Abdomen soft bowel sounds are heard. No masses or tenderness. Extremities are intact. No cyanosis clubbing or edema. Skin is without rash or lesion. Neurologic examination is brief but nonfocal. - Labs CBC & Chem 7: 02/01/24 02:39 02/01/24 02:39 Assessment and Plan Assessment: Recurrent right-sided pleural effusion, reportedly malignant, per fluid cytology derived from [facility]. Cytology reportedly positive for carcinoma, differential including neuroendocrine versus adenocarcinoma with neuroendocrine features. Right-sided Pleurx placed on January 29, 2024. Right upper lobe mass, A chest CT scan was was completed at outside facility demonstrated a mass in the right upper lobe measured 10 x 4 cm, adjacent opacity with suspicion for infection and malignancy, recurrent large right pleural effusion, no evidence of pneumothorax. Previously, not considered for bronchoscopy and transbronchial biopsy due to patient's poor baseline pulmonary status. Acute COPD exacerbation. Acute on chronic hypoxemic respiratory failure, secondary to above. Severe chronic obstructive pulmonary disease. Chronic oxygen dependence, with 2 L home O2 use. History of occupational lung disease. History of hypertension. History of hyperlipidemia. Diabetes mellitus type 2. Coronary artery disease with history of CABG. Former tobacco dependence, quitting over 40 years ago. Plan: Plan dated February 03, 2024. The patient is pending discharge to a local custodial/rehab facility. We will continue to follow. Awaiting placement as per case management. Labs, x- rays, and all medications are reviewed. Patient is overall prognosis remains poor given his diagnosis. He is very cachectic and frail. He is a DO NOT RE SUSCITATE patient. Time with Patient: Less than 30
--- NOTE | 2024-02-17 10:36 | FL ---
EXAMINATION TYPE: FL fluoroscopy <1hr DATE OF EXAM: 01/29/2024 8:41 AM COMPARISON: Pre Operative Images if available both CT/MRI or plain film CLINICAL INDICATION: Male, 88 years old with history of PLEURX CATHETER INSERTION; TECHNIQUE: FL fluoroscopy <1hr, multiple fluoroscopic images provided for procedure. Total fluoroscopy time: 6.8 seconds Total submitted images to PACS: 1 DAP: [id number] mGym2 Gycm2 uGym2 cGycm2 or equivalent. FINDINGS: Fluoroscopic imaging for Pleurx catheter insertion no evidence for pneumothorax. Multilevel degenerat ion changes of the spine. Sternotomy wires present. IMPRESSION: 1. No evidence for intraoperative complication. 2. Please see the operative/procedural note for further details. [facility], , 02/17/2024 10:33 AM
== END 2024-02-03 11:56 | disposition still patient (30) | DRG 180 ==
LOC: 5NMEDONC 01-26 10:30
PROVIDERS: ADMIT Internal Medicine; ATTEND Internal Medicine
PROC: 0W9930Z Drainage of Right Pleural Cavity with Drainage Device, Percutaneous Approach (ICD-10-PCS; principal; 2024-01-29 08:00)
DX: C34.11 Malignant neoplasm of upper lobe, right bronchus or lung (principal); J18.9 Pneumonia, unspecified organism; J96.21 Acute and chronic respiratory failure with hypoxia; J91.0 Malignant pleural effusion; J44.0 Chronic obstructive pulmonary disease with (acute) lower respiratory infection; J44.1 Chronic obstructive pulmonary disease with (acute) exacerbation; C78.7 Secondary malignant neoplasm of liver and intrahepatic bile duct; E44.0 Moderate protein-calorie malnutrition; Z66 Do not resuscitate; Z99.81 Dependence on supplemental oxygen; I10 Essential (primary) hypertension; E11.9 Type 2 diabetes mellitus without complications; N40.0 Benign prostatic hyperplasia without lower urinary tract symptoms; E78.5 Hyperlipidemia, unspecified; K59.00 Constipation, unspecified; I25.10 Atherosclerotic heart disease of native coronary artery without angina pectoris; I25.2 Old myocardial infarction; Z68.25 Body mass index [BMI] 25.0-25.9, adult; Z95.1 Presence of aortocoronary bypass graft; Z79.84 Long term (current) use of oral hypoglycemic drugs; Z79.899 Other long term (current) drug therapy; Z79.51 Long term (current) use of inhaled steroids; Z79.52 Long term (current) use of systemic steroids; Z87.01 Personal history of pneumonia (recurrent); Z87.891 Personal history of nicotine dependence; Z82.49 Family history of ischemic heart disease and other diseases of the circulatory system
CPT/HCPCS: 70553; 71045; 71046; 74018; 76000; 76604; 80048; 81001; 83880; 84145; 85025; 85610; 85730; 86850; 86900; 86901; 88108; 88305; 88341; 88342; 94640; 94760